=== PATIENT | male | born 1935 | race Caucasian/White ===

== ENCOUNTER 2017-01-19 15:00 | Inpatient (IN) | payer MEDICARE, BC ==
[~2017-01-19] VITALS: Ht 185.4 cm; Wt 92.2 kg
--- NOTE | ~2017-01-19 | PN ---
PATIENT'S NAME: DEVON HANDY [facility] AGE: 82 Y [address] ROOM: [address]14 [place] [address] LOCATION: [facility] [place] ADMIT DATE: 01/22/2017 Progress Notes DISCHARGE DATE: FAMILY PHYSICIAN: Marcos Dan MD ATTENDING PHYSICIAN: REMINGTON KIDD DATE OF SERVICE: 01/25/2017 DAILY SOAP NOTE An 82-year-old male. He is status post irrigation and debridement with exchange of antibiotic spacers, placement of antibiotic beads, and wound closure with negative pressure dressing attached to the wound VAC at left hip. Postoperative day 3. His cultures have come back from the draining sinus tract where the soft tissue was debrided extensively, growing out pseudomonas and VRE. I have discussed with the hospitalist and consulted infectious disease, and we relay on them for antibiotic treatment as he is very sensitive to antibiotics, have been multiple bouts of diarrhea and VRE. Having that this is growing in the sinus tract, that was debrided as well as pseudomonas with this polymicrobial infection, we performed an extensive irrigation and debridement, removing all the tissue following the tract all the way to the joint. New antibiotic spacer would be placed in the acetabulum that was without deficit, and all necrotic tissue in the tract was removed as best as possible. Several liters of pulsatile lavage were utilized and wound was closed as best as possible and minimize the free space. The patient is being watched and followed by the hospitalist with low hemoglobin. If it becomes symptomatic, may need blood transfusion. Current vital signs, 125/66 blood pressure, heart rate has been normal in the 50s and 70s, temperature afebrile, then on O2 2 L by nasal cannula. His hemoglobin is in the 7. Preoperative was 9.2. Due to this polymicrobial infection, we will relay on infectious disease to help. We will check the wound. Once the wound is completely healed, we will plan to re-aspiration and synovature. If wound at that point is well healed, and he has been off antibiotics with negative culture, we can plan reimplantation of prosthesis as part of the second stage at that time. It is unfortunate that Mr. Devon Handy has had to go through this stage I surgery for numerous times, however, given his history of periprosthetic spine infections and MRSA, if this wound does not heal and get better, he may need further irrigation and debridement. We will continue to monitor him, my PA Matt follows him often. Thank you for the Infectious Disease and the Hospitalist input. Also thanks to Dr. Mason for providing us second opinion. PATIENT'S NAME: DEVON HANDY [facility] AGE: 82 Y [address] ROOM: [place] [address] LOCATION: [facility] [place] ADMIT DATE: 01/22/2017 Progress Notes DISCHARGE DATE: FAMILY PHYSICIAN: Marcos Dan MD ATTENDING PHYSICIAN: REMINGTON KIDD REMINGTON KIDD DO PH/modl /[id number] d: 01/25/172047 t: 02/03/17 1628, PROGRESS NOTES
--- NOTE | ~2017-01-19 | HP ---
PATIENT'S NAME: DEVON HANDY [facility] AGE: 82 Y [address] ROOM: [place] [address] LOCATION: [facility] ADMIT DATE: 01/22/2017 History & Physical DISCHARGE DATE: FAMILY PHYSICIAN: Marcos Dan MD ATTENDING PHYSICIAN: REMINGTON KIDD DATE OF SERVICE: ADDENDUM: The patient was seen by Cardiology and pacemaker interrogation was performed. As per Cardiology, it is okay to proceed with surgery tomorrow from a cardiac standpoint. His pacemaker is firing appropriately. STEPHANE HIGGINS APRN FOR MD KUSH SALAZAR/olivia /[id number] D: [id number] T: [id number] HISTORY & PHYSICAL
--- NOTE | ~2017-01-19 | OR ---
PATIENT'S NAME: DEVON HANDY [facility] AGE: 82 Y [address] ROOM: [address] [place], [place] [address] LOCATION: [facility] [place] ADMIT DATE: 01/22/2017 OR/Procedure Report DISCHARGE DATE: 01/26/2017 FAMILY PHYSICIAN: Marcos Dan MD ATTENDING PHYSICIAN: DEVENDRA DREW SURGEON: Devendra Drew DO RENAL NURSE: DATE OF PROCEDURE: 01/22/2017 Corrected copy per physician 01/28 PREOPERATIVE DIAGNOSES: Sinus tract with periprosthetic wound infection; history of sepsis with MRSA, sensitive to antibiotics with multiple bouts of Clostridium difficile; history of periprosthetic spine infection; history of left hip dislocation with periacetabular fracture and 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 POSTOPERATIVE DIAGNOSIS: Sinus tract with periprosthetic wound infection; history of sepsis with MRSA, sensitive to antibiotics with multiple bouts of Clostridium difficile; history of periprosthetic spine infection; history of left hip dislocation with periacetabular fracture and revision from bipolar to total hip arthroplasty status post fall with wound dehiscence and dislocation of bipolar, confirming a superficial wound that would not heal with multiple bouts of wound care and wound VAC. Confirmed intraoperatively there is sinus tract connecting to the joint space where he had undergone life-saving treatment due to sepsis and periprosthetic wound infection by Dr. Mason while I was out of town and my partner Karl Rodgers was on-call. We thank him for the service. PROCEDURE: Irrigation and debridement left hip with exchange antibiotic spacers and antibiotic beads. INDICATIONS: Mr. Devon Handy is an 82-year-old gentleman, who underwent treatment for displaced femoral neck hip fracture by me. He had a fall and posterior wall fracture dislocating his bipolar hemiarthroplasty. With this fall, he had a wound dehiscence. He was under the care of Dr. Guerrero who was taking [facility] office call, performed reduction and wound irrigation and debridement. I took him back to the OR and confirmed he had a small posterior wall acetabular fracture. This fragment was removed and he was converted to total hip arthroplasty and confirmed stable. We did a thorough irrigation and debridement, and placed the antibiotic beads. He was doing well until approximately 4 weeks later while I was out of town, reported that he had fevers, chills, had MRSA, sepsis as well as hematogenous spread to the left hip. Dr. Mason was consulted as I was out of town over the holidays and performed life-saving irrigation and debridement and explant with antibiotic spacers. He had a difficult time healing the wound despite him being off PATIENT'S NAME: DEVON HANDY [facility] AGE: 82 Y [address] ROOM: [facility] [place] [place] [address] LOCATION: [facility] [place] ADMIT DATE: 01/22/2017 OR/Procedure Report DISCHARGE DATE: 01/26/2017 FAMILY PHYSICIAN: Marcos Dan MD ATTENDING PHYSICIAN: DEVENDRA DREW antibiotics and inflammatory markers improving someone who has rheumatoid, is on chronic steroids, was unable to heal this wound. He had a similar case with the spine surgery and had difficulty with wound problems and bacteria contamination of the wound. Due to the fact that the wound is not healing, I discussed with the patient and family members and they also seek second opinion, which I welcome from Dr. Mason. We both agree that he needs to have a thorough irrigation, debridement, and removal of all the necrotic tissue through the sinus tract and replace antibiotic beads and spacers. They understand the risks, benefits, and potential complications. They understand this could be seated into his spine hardware or on his pacemaker, which is due for an exchange due to recall. They understand the risk of perioperative cardiac event, neurovascular injury, difficulty healing the wound, being on chronic steroids with rheumatoid, sepsis that could result in . DESCRIPTION OF PROCEDURE: Having been well informed, the patient brought back to operative suite, placed in the supine position on the Whitehouse table. He was placed under general endotracheal anesthesia. We held antibiotics until cultures and tissue were sent. We sent off cultures here to the [facility] lab as well as synovasure to [place] for periprosthetic joint analysis assay including alpha-defensin and crystals. We will await cultures. Infectious Disease treat empirically with antibiotics. He is very sensitive to antibiotics and has multiple bouts of C. diff. After cultures taken, he received 2 grams of IV Ancef as well as 1 gram of IV vancomycin. The wound was debrided. The antibiotic spacer removed using 4 bags of 3 L saline, total of 12 L. New spacers were made and placed in the acetabulum and into the canal as well as antibiotic beads. During examination of the cleaned wound from the acetabulum had no further defects other than the old small posterior wall fragment that had broke off when he dislocated his grace hip arthroplasty. There was a small amount of lateral calcar bone missing. His abductors appeared weak. The capsule had been excised. I do not have to really perform any releases regarding positioning. The skin necrotic portions were removed and ellipsed out for good bleeding tissue. The fascia of the tensor was closed with a single #1 Vicryl followed by running #2 Quill, subcutaneous tissue with nylon followed by Monocryl, simple interrupted sutures of the skin. A Prevena dressing was placed and will be attached to wound VAC to 125 mm continues pressure, will be removed in a week. Continue nutrition. Minimize rheumatoid medications including steroids. He will be nonweightbearing with traction transfers with assistance, fall precautions, and resume DVT prophylaxis with SCDs, AWILDA hose, and Lovenox or Xarelto. We will have Infectious Disease see him regarding continuing empiric antibiotics and await cultures and sensitivities. Hopefully, he can get his pacemaker revise in the near future and then as soon as this wound is healed. We can re-aspirate the hip under fluoro and confirmed no infection and prepare him for reimplantation. PATIENT'S NAME: DEVON HANDY [facility] AGE: 82 Y [address] ROOM: [place] [address] LOCATION: [facility] [place] ADMIT DATE: 01/22/2017 OR/Procedure Report DISCHARGE DATE: 01/26/2017 FAMILY PHYSICIAN: Marcos Dan MD ATTENDING PHYSICIAN: DEVENDRA DREW DEVENDRA DREW, PH/modl /[id number] Corrected copy per physician 01/28 d: 01/22/171738 t: 02/23/171732, OPERATIVE SUMMARY
--- NOTE | ~2017-01-19 | HP ---
PATIENT'S NAME: DEVON HANDY [facility] AGE: 82 Y [address] ROOM: [place] [address] LOCATION: ADMIT DATE: 01/22/2017 History & Physical DISCHARGE DATE: FAMILY PHYSICIAN: Physician, Unknown ATTENDING PHYSICIAN: Jimenez Jean DATE OF SERVICE: ADDENDUM: This is an addendum to the H and P that I did earlier today. The patient's EKG was over read by Cardiology. There were concerns with the patient's pacemaker and recommended further evaluation. I discussed with Dr. Torres. We will obtain a stat cardiology consult and pacemaker interrogation for further evaluation. At this time, the patient is not cleared for orthopedic surgery pending further cardiology evaluation and cardiology clearance. I discussed this with the patient and his . I did call and leave a message with Dr. Drew as well as Jimenez Jean PA-C to call me back regarding the patient. The patient is not cleared for I and D of his hip pending further cardiac clearance. Update: Cardiology saw and evaluated the patient and cleared the patient for surgery without requiring additional workups and agreed with Dr. Torres's initial assessment for preop medical clearance for surgery. STEPHANE HIGGINS APRN FOR MD KUSH SALAZAR/olivia /[id number] D: 256 T: 126 HISTORY & PHYSICAL
--- NOTE | ~2017-01-19 | DS ---
PATIENT'S NAME: DEVON HANDY [facility] AGE: 82 Y [address] ROOM: [address] [place] [address] LOCATION: [facility] [place] ADMIT DATE: 01/22/2017 Discharge Summary DISCHARGE DATE: 01/26/2017 FAMILY PHYSICIAN: Marcos Dan MD ATTENDING PHYSICIAN: Devendra Drew FINAL DIAGNOSES: 1. Left hip infection with Pseudomonas aeruginosa, status post irrigation and debridement, wound closure, and antibiotic spacers on January 22. 2. Paroxysmal atrial fibrillation. 3. Long-term anticoagulation. 4. Chronic diastolic and systolic congestive heart failure. 5. Recurrent C. diff colitis. 6. Chronic right internal jugular thrombosis. 7. Rheumatoid arthritis on chronic steroid use with chronic steroid usage. 8. Essential hypertension. 9. Long-term anticoagulation with Xarelto. 10. Acute blood loss anemia on anemia of chronic disease. 11. Stage 3 chronic kidney disease. HISTORY OF PRESENT ILLNESS: The patient was admitted from the Transitional Care Unit. He had been diagnosed with a hip infection in late October and had been on IV antibiotics through January 07. The wound had started to drain more and so the decision was made to do an I and D and then place a wound VAC. LABORATORY DATA: On the day after admission, sodium 145, potassium 4.8, chloride 110, CO2 28, BUN 28, and creatinine 1. These values at discharge sodium 137, potassium 4.6, BUN 18, and creatinine 1.4. Second hospital day, white blood cell count 9.6, hemoglobin 8.7, hematocrit 30.4, and platelet count 207. His hemoglobin did steadily drop to 7.4, 7.2, and it was 7.8, on discharge day. Platelet count was 207 on admission, most prior to discharge was 180. Culture data of left hip wound grew out Pseudomonas aeruginosa and Enterococcus faecium. HOSPITAL COURSE: The patient was admitted after undergoing a left hip I and D and wound closure with application of a wound VAC. Please see Dr. Drew's op note for full details. The patient was admitted on and did undergo routine postop care. The hospitalists were asked to follow along. Initially, his pain was fairly well-controlled. We did use Teasdale for pain control. He was monitored on telemetry. On the , his wound cultures came back positive for Pseudomonas aeruginosa and Enterococcus. At that time, ID was consulted by phone and the decision was made to place him on Zyvox and Zosyn. The patient did initiate the antibiotics. It was felt that he could return to TCU on the to complete the antibiotics and to be seen by Infectious PATIENT'S NAME: DEVON HANDY [facility] AGE: 82 Y [address] ROOM: [place] [address] LOCATION: [facility] [place] ADMIT DATE: 01/22/2017 Discharge Summary DISCHARGE DATE: 01/26/2017 FAMILY PHYSICIAN: Marcos Dan MD ATTENDING PHYSICIAN: Devendra Drew when they were here this week. DISCHARGE INSTRUCTIONS: ID to see him on January 30, he is to have a high- protein diet, weightbearing as tolerated, PT and OT has worked weekly, CBC, Chem panel, sed rate, and C-reactive protein every Thursday, Colbert catheters in place for urinary retention with a goal to remove it when he is more active. DISCHARGE MEDICATIONS: 1. Vancomycin 125 mg twice daily for C. diff prevention. 2. Zyvox 600 mg twice daily. 3. IV Zosyn 3.375 g IV q.8 h. 4. Bumex 1 mg daily. 5. Citracal with D one twice daily. 6. Coreg 3.125 mg twice daily. 7. Vitamin D 2000 units daily. 8. Feosol 325 mg daily. 9. Protonix 40 mg daily. 10. Metamucil 1 packet daily. 11. Xarelto 20 mg daily. 12. Florastor 250 mg twice daily. 13. Flomax 0.4 mg at bedtime. 14. Tylenol 650 mg every 6 hours as needed. 15. Teasdale 5/325 1-2 every 4 hours as needed for pain. 16. Dulcolax 10 mg per rectum as needed for constipation. 17. Chloraseptic spray 1 spray every 2 hours as needed for sore throat. 18. Benadryl 25 to 50 every 6 hours as needed for itching. 19. Lidocaine for IV start. 20. Milk of mag 30 mL daily as needed for constipation. 21. MiraLAX 17 g daily as needed. 22. Fleet's enema as needed. 23. Lexapro 20 mg daily. MD SUSANA WILHELM/pastoral /[id number] CC: MD Devendra Josue DO d: 01/27/17 0358 t: 01/28/17 1043, DISCHARGE SUMMARY
--- NOTE | ~2017-01-19 | HP ---
PATIENT'S NAME: DEVON HANDY [facility] AGE: 82 Y [address] ROOM: [place] [address] LOCATION: ADMIT DATE: 01/22/2017 History & Physical DISCHARGE DATE: FAMILY PHYSICIAN: Physician, Unknown ATTENDING PHYSICIAN: Jimenez Jean DATE OF SERVICE: CHIEF COMPLAINT: Infected left hip. HISTORY OF PRESENT ILLNESS: This is a pleasant, 82-year-old male with a history of left hip infection MRSA, status post I and D, removal of prosthesis, and implantation of impregnated spacers. He was placed on vancomycin postop. Infectious Disease has been following closely. His IV vancomycin was discontinued on 01/07/2017. Dr. Drew plans to take the patient for further left hip I and D with closure and wound VAC application on 01/22/2017. The patient has been hospitalized at [facility]CU for restorative care and IV antibiotics since 12/05/2016. He has progressed well with therapies. He does have some left hip pain as well as chronic low back pain. He has been working with PT, OT, and ST. He denies any chest pain, shortness of breath, cough, wheezing, nausea, or vomiting. He has a history of recurrent C difficile colitis for which he was placed on vancomycin and also a vancomycin p.o. taper. His stools have been formed. He has had no diarrhea. Blood cultures drawn on 01/13/2017 have showed no growth to date. He has had no fevers, chills, or night sweats. Wound Care has been following him for his wound VAC that is in place. He has been able to tolerate a regular diet. He is scheduled to have his pacemaker/ICD exchange with Dr. Garcia on 01/30/2017 at [facility] as it was recalled by the company. His paroxysmal atrial fibrillation has been stable. He is currently, on EKG, in sinus rhythm. He is on Xarelto which is currently on hold for the upcoming surgery. Overall, he states he is feeling well. His appetite is good, tolerating a regular diet. He does continue to have a Colbert secondary to urinary retention. He is on Flomax. The plan, as per Urology, is to try a voiding trial when the patient is more active. He has not required any oxygen. Heart rate has been stable. Denies dizziness or light headedness. PAST MEDICAL HISTORY: 1. Chronic systolic and diastolic CHF. 2. History of left lower extremity DVT 7 years ago. 3. Essential hypertension. 4. GERD. 5. History of sepsis secondary to urinary tract infection. 6. Recurrent C difficile colitis. 7. Rheumatoid arthritis. PATIENT'S NAME: DEVON HANDY [facility] AGE: 82 Y [address] ROOM: [place] [address] LOCATION: ADMIT DATE: 01/22/2017 History & Physical DISCHARGE DATE: FAMILY PHYSICIAN: Physician, Unknown ATTENDING PHYSICIAN: Jimenez Jean 8. Long-term anticoagulation use. 9. Long-term steroid use. 10. History of AV node ablation with pacemaker placement/ICD. This pacemaker/ICD has been recalled. The patient is scheduled to undergo replacement of that in the future. 11. Paroxysmal atrial fibrillation. 12. Right IJ DVT, chronic. 13. Vitamin D deficiency. 14. Acute blood loss anemia. 15. History of chronic respiratory failure. Had been on 3 L of nocturnal oxygen; however, has not needed that since being hospitalized on TCU. ALLERGIES: NORVASC AND REMERON. FAMILY HISTORY: Mother and brother with CT. Father with lung cancer and ulcers. SOCIAL HISTORY: The patient is . He is currently residing at [facility] since 12/05/2016. No history of smoking or alcohol use. REVIEW OF SYSTEMS: A 10-point review of systems was performed and was negative except those which are noted in the HPI. CURRENT MEDICATIONS: As discharged from TCU are: 1. Bumex 1 mg p.o. daily. 2. Calcium with Vitamin D one tablet p.o. twice a day. 3. Coreg 3.125 mg p.o. twice a day. 4. Vitamin D 2000 units p.o. daily. 5. Lexapro 20 mg p.o. daily. 6. Feosol 325 mg p.o. daily. 7. Magnesium oxide 400 mg p.o. daily. 8. Protonix 40 mg p.o. daily. 9. Prednisone 5 mg p.o. daily. 10. Metamucil one packet p.o. daily. 11. Florastor 250 mg p.o. twice a day. 12. Flomax 0.4 mg p.o. q.h.s. 13. Tylenol 650 mg p.o. every 4 hours as needed for pain. 14. [place] 5/325 one or two tablets p.o. every 4 hours as needed for pain. 15. Dulcolax suppository 10 mg as needed for constipation. 16. Milk of magnesia 30 mL p.o. daily as needed for constipation. 17. MiraLAX 17 g p.o. daily p.r.n. constipation. PATIENT'S NAME: DEVON HANDY [facility] AGE: 82 Y [address] ROOM: [place] [address] LOCATION: ADMIT DATE: 01/22/2017 History & Physical DISCHARGE DATE: FAMILY PHYSICIAN: Physician, Unknown ATTENDING PHYSICIAN: Jimenez Jean 18. Xarelto 20 mg p.o. daily, this is currently on hold secondary to pending surgery. PHYSICAL EXAMINATION: GENERAL: This is an 82-year-old male in no acute distress. VITAL SIGNS. Temperature 97.6, heart rate 90, respirations 16, blood pressure 97/52, and 92% on room air. 92.2 kg. HEENT: Head is atraumatic. Pupils equal, round, and reactive to light. Oral mucosa is moist. No posterior oropharynx exudate or erythema. NECK: Supple. No lymphadenopathy. LUNGS: Clear throughout to auscultation bilaterally. No rales, crackles, or wheezing. No dyspnea. CARDIOVASCULAR: Distant heart sounds. Regular rhythm and rate. No murmur. There is evidence of a pacemaker to the left chest. ABDOMEN: Nondistended and nontender. Bowel sounds are active x4 quadrants. No organomegaly. MUSCULOSKELETAL: He does have deformities of both hands and feet secondary to his rheumatoid arthritis. Left hip has a surgical dressing with a wound VAC. EXTREMITIES: Pulses 2+ bilateral upper extremities, 1+ bilateral lower extremities. Extremities are warm. Cap refill less than 3. Left lower extremity is currently in traction. Trace edema to bilateral lower extremities. SKIN: Warm and dry without rashes. NEUROLOGIC: The patient is awake, alert, and oriented x3. Cranial nerves 2 through 12 are grossly intact. DIAGNOSTIC STUDIES: EKG done on 01/21/2017 shows sinus rhythm with borderline first-degree AV block with demand pacing. Chest x-ray: Pending radiologist's reading. There does not appear to be any focal infiltrate. WBC 6.7, hemoglobin 9.2, hematocrit 31.4, and platelets 198. ESR 34. Prothrombin time 12.9 and INR 1.2. Sodium 142, potassium 4.2, chloride 107, CO2 of 27, anion gap 12.2, glucose 118, calcium 8.0, BUN 30, creatinine 1.1, and GFR greater than 60. CRP 1.63. Blood cultures collected on 01/13/2017 times two have revealed no growth to date after 5 days. IMPRESSION AND PLAN: 1. Left septic hip, methicillin-resistant Staphylococcus aureus: The patient will be readmitted for Orthopedics to perform irrigation and debridement, wound closure, and wound VAC placement. He is currently off antibiotics, had previously been treated with vancomycin. 2. Chronic systolic and diastolic congestive heart failure: The patient is PATIENT'S NAME: DEVON HANDY [facility] AGE: 82 Y [address] ROOM: [place] [address] LOCATION: ADMIT DATE: 01/22/2017 History & Physical DISCHARGE DATE: FAMILY PHYSICIAN: Physician, Unknown ATTENDING PHYSICIAN: Jimenez Jean currently on Bumex 1 mg. we will continue that for now. He appears to be compensated. Continue to monitor weights and inputs and outputs. 3. Urinary retention: The patient currently has a Colbert catheter. He had been seen by Urology. The Colbert catheter is to remain in place until he becomes more active. 4. Essential hypertension: Blood pressures have been stable. Systolically, he ranges from 97 to 150s. Continue on the patient's low-dose Coreg for now. 5. Paroxysmal atrial fibrillation: His rates are stable. He does have a pacemaker/ICD. His Xarelto is on hold currently for pending surgery. Continue Coreg for now. Recommend monitoring on telemetry postoperatively. 6. Vitamin D deficiency: Continue p.o. replacement with calcium and vitamin D. 7. Rheumatoid arthritis: The patient is on long-term steroid use with prednisone. Continue that for now and monitor. 8. Acute blood loss anemia: His hemoglobin is stable currently. Recommend to monitor serial hemoglobin and hematocrit postoperatively. Continue on Feosol. 9. Depression: Stable. We will continue home Lexapro. 10. Hypomagnesium: Continue p.o. magnesium replacement. Recommend followup labs postoperatively. 11. Gastroesophageal reflux disease: Currently, stable and asymptomatic. Continue Protonix. 12. Constipation: Continue Metamucil and p.r.n. Dulcolax and MiraLAX as needed. 13. History of recurrent Clostridium difficile colitis: We will continue the patient's floor Florastor for now. His stools have been formed. Continue monitoring. 14. History of chronic respiratory failure: The patient, prior to his admit, had required 3 L of oxygen at night; however, his saturations have remained greater than 90 throughout his stay and has not required any oxygen. We will go ahead and continue to monitor and apply oxygen if his saturations are less than 90%. The patient is an intermediate risk for this orthopedic surgery. The patient's care is being coordinated in consultation with Dr. Torres. STEPHANE HIGGINS APRN FOR MD KUSH SALAZAR/olivia PATIENT'S NAME: DEVON HANDY [facility] AGE: 82 Y [address] ROOM: [place] [address] LOCATION: ADMIT DATE: 01/22/2017 History & Physical DISCHARGE DATE: FAMILY PHYSICIAN: Physician, Unknown ATTENDING PHYSICIAN: Jimenez Jean /[id number] D: [id number] T: [id number] HISTORY & PHYSICAL
[~2017-01-19 15:00] MED LIST: ALBUTEROL2.5 MG/0.5 INH; ARAVA20 MG PO; CALCIUM 500 +1 EAC1 PO; COLACE100 MG PO; COREG 3.1253.125 MG PO; DELTASONE5 MG PO; DULCOLAX10 MG R; ENSURE LIQUID237 ML PO; FEOSOL325 MG PO; FISH OIL 1,0001 EAC3 PO; LASIX20 MG PO; LEXAPRO20 MG PO; MAALOX LIQ UNIT30 ML PO; MILK OF MA400 MG/5 M PO; MIRALAX PO527 GM/BOT; MIRALAX17 GM PO; OMEPRAZOLE40 MG PO; PAIN RELIEVER325 MG PO; PROVENTIL OR V6.7 GM; ROCEPHIN1 G1 IM; ULTRAM50 MG PO; VITAMIN B-121000 MCG PO; VITAMIN D1000 UNIT PO; XARELTO20 MG PO
--- NOTE | 2017-01-22 16:52 | NUR ---
Significant Event: Received from PACU at 1425. 2nd hourly at 1910. Morphine 2mg IVP at 1510. [place] one tab at 1645. Wound vac to lt hip. CSM WNL. Telemetry. PICC to rt upper arm. Taking water. Follow up:
[2017-01-23 03:42] LABS: ANION GAP 11.8 (10.0-19.0); BLOOD UREA NITROGEN 28 mg/dL (6-24); CALCIUM 7.6 mg/dL (8.5-10.5); CHLORIDE 110 mMol/L (96-110); CO2 28 mMol/L (22-32); ESTIMATED GFR (MDRD EQUATION) > 60; POTASSIUM 4.8 mMol/L (3.7-5.1); SODIUM 145 mMol/L (135-145)
[2017-01-23 04:33] LABS: BASOPHIL # 0.1 K/uL (0.0-0.2); BASOPHIL % 0.5 %; EOSINOPHIL # 0.4 K/uL (0.0-0.5); EOSINOPHIL % 4.6 %; HEMATOCRIT 30.4 % (33.0-50.0); HEMOGLOBIN 8.7 g/dL (11.0-16.0); IMMATURE GRANULOCYTE % 0.4 %; LYMPHOCYTE # 1.7 K/uL (0.8-4.0); LYMPHOCYTE % 18.2 %; MCH 25.7 pg (27.0-34.0); MCHC 28.6 gm/dL (32.0-36.5); MCV 89.7 fl (83.0-98.0); MONOCYTE # 1.1 K/uL (0.0-1.0); MPV 10.9 fl (9.4-12.4); NEUTROPHIL # (ANC) 6.3 K/uL (1.4-9.0); NEUTROPHIL % 65.3 %; NRBC % 0 /100WBC (0-0.00); PLATELET COUNT 207 K/uL (150-450); RBC 3.39 M/uL (3.50-5.50); RDW-CV 16.7 % (11.9-14.6); WBC 9.6 K/uL (4.0-11.0)
--- NOTE | 2017-01-23 04:56 | NUR ---
MRSA ISOLATION POD#1 I&D OF LEFT HIP WITH ANTIBIOTIC SEEDING, WOUND VAC TO LEFT THIGH AND HNO OUTPUT THIS SHIFT, BUCKS TRACTION TO LLE 1LBS, GOOD CSMS TO BLE, BLOOD PRESSURES TO RLE DUE TO HX OF DVTS TO LUE AND SL BARD SOLO PICC TO THE RIGHT DATED 01/17/17 WITH GOOD BLOOD RETURN AND EASY FLUSH RUNNING D5 1/2NS W/K+ 20MEQ @125ML/HR AND MAY SALINE LOCK WITH GOOD PO. PATIENT SLEPT MOST OF THE SHIFT AND RECEIVED MORPHINE IVP X ONE WITH GOOD PAIN RELIEF, VERY POOR PO INTAKE AND ONLY 400ML URINE OUTPUT THRU CARLS[facility] W/ORDERS TO DC THIS AFTERNOON, NO BMS THIS SHIFT. VS WNL, ON 2L O2 PER NC, BRADYCARDIC MOST OF THE SHIFT IN THE 50'S, ON TELE THAT SHOWS PACED AND AICD TO LEFT SUBCLAVIN. LLE WITH 2-3+ PITTING EDEMA FROM ANKLES UP TO HIP.
--- NOTE | 2017-01-23 12:00 | NUR ---
RECEIVED REFERRAL THAT PATIENT WILL BE READY FOR TRANSFERE TO TCU TOMORROW. I SPOKE TO [facility] ON TCU AND SHE TELLS ME THAT THEY HAVE SAVED A BED FOR DEVON SHE WILL GET BACK TO ME TO WHEN THEY CAN ACCEPT PATIENT BACK.
--- NOTE | 2017-01-23 17:38 | NUR ---
Significant Event: PATIENT ALERT AND ORIENTED X3. WOUND VAC TO L) HIP, DRAINING BLOODY DRAINAGE WITH 200ML OUT. CSM ASSESSMENTS WNL. FOOT PUMP TO R) FOOT AND BILATERAL KNEE HIGH AWILDA HOSE ON. BUCKS TRACTION 10LBS TO L) LEG. UP TO CHAIR AND RETURNED TO BED WITH LIFT. ON TELEMETRY. PAIN WELL CONTROLLED WITH NORCO 1 TAB GIVEN LAST AT 1516 AND IV MORPHINE AT 0920. CARLSON PATENT, WITH 775ML OUT. EDEMA TO L) LEG. HEELS OFF BED WITH PILLOWS. ICE BAG TO L) HIP. TAKING FLUIDS WELL, GOOD APPETITE. PICC R) UPPER ARM, PATENT. Follow up: TO LEAVE [facility] IN, TCU AT 1000 TOMORROW.
--- NOTE | 2017-01-24 04:41 | NUR ---
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
[2017-01-24 06:17] LABS: BASOPHIL % 0.5 %; EOSINOPHIL # 0.5 K/uL (0.0-0.5); EOSINOPHIL % 8.4 %; HEMATOCRIT 25.4 % (33.0-50.0); IMMATURE GRANULOCYTE % 0.5 %; LYMPHOCYTE # 1.4 K/uL (0.8-4.0); LYMPHOCYTE % 23.4 %; MCV 89.1 fl (83.0-98.0); MONOCYTE # 0.9 K/uL (0.0-1.0); MONOCYTE % 13.8 %; MPV 10.6 fl (9.4-12.4); NEUTROPHIL # (ANC) 3.3 K/uL (1.4-9.0); NEUTROPHIL % 53.4 %; NRBC % 0 /100WBC (0-0.00); RBC 2.85 M/uL (3.50-5.50); RDW-CV 16.8 % (11.9-14.6); WBC 6.2 K/uL (4.0-11.0)
[2017-01-24 06:20] LABS: HEMOGLOBIN 7.4 g/dL (11.0-16.0); MCHC 29.1 gm/dL (32.0-36.5); PLATELET COUNT 163 K/uL (150-450)
[2017-01-24 06:21] LABS: ANION GAP 9.5 (10.0-19.0); BLOOD UREA NITROGEN 25 mg/dL (6-24); CHLORIDE 110 mMol/L (96-110); CO2 26 mMol/L (22-32); ESTIMATED GFR (MDRD EQUATION) > 60; POTASSIUM 4.5 mMol/L (3.7-5.1); SODIUM 141 mMol/L (135-145)
[2017-01-24 06:23] LABS: CALCIUM 7.4 mg/dL (8.5-10.5)
--- NOTE | 2017-01-24 19:15 | NUR ---
Significant Event: charge nurse received call from lab, patient +for VRE, inital dose of iv zosyn and zyvox given. picc to r) upper arm patent. wound vac to l) hip intact. stevens patent with 650ml out. foot pump to r) foot. l) leg in bucks traction 10lbs. ice bag to l) hip. repositioned frequently with 2 assist. taking fluids well, good appetite. no drainage noted from wound vac. norco 2 tabs given at 1753. pleasant and cooperative with cares. bilateral knee high teds on. remains in isolation. Follow up:
--- NOTE | 2017-01-25 04:22 | NUR ---
Significant Event: Pt alert and oriented. Forgetful. Up with lift. [place] traction at 10lbs. PICC. Dsg changed this am. [place] q6hrs. NS with 20K at 125ml. Good output. Wound vac 50cc out, Labs this am. Incision c/d/i. Cms intact. Colbert patent. Follow up:
[2017-01-25 05:22] LABS: ANION GAP 14.3 (10.0-19.0); BLOOD UREA NITROGEN 19 mg/dL (6-24); CALCIUM 7.5 mg/dL (8.5-10.5); CHLORIDE 106 mMol/L (96-110); CO2 23 mMol/L (22-32); ESTIMATED GFR (MDRD EQUATION) > 60; POTASSIUM 4.3 mMol/L (3.7-5.1); SODIUM 139 mMol/L (135-145)
[2017-01-25 05:24] LABS: BASOPHIL % 0.5 %; EOSINOPHIL # 0.5 K/uL (0.0-0.5); EOSINOPHIL % 7.4 %; HEMOGLOBIN 7.2 g/dL (11.0-16.0); IMMATURE GRANULOCYTE % 0.5 %; LYMPHOCYTE # 1.6 K/uL (0.8-4.0); LYMPHOCYTE % 24.6 %; MCH 25.5 pg (27.0-34.0); MCHC 28.8 gm/dL (32.0-36.5); MCV 88.7 fl (83.0-98.0); MONOCYTE # 0.7 K/uL (0.0-1.0); MPV 10.6 fl (9.4-12.4); NEUTROPHIL # (ANC) 3.6 K/uL (1.4-9.0); NRBC % 0 /100WBC (0-0.00); PLATELET COUNT 155 K/uL (150-450); RBC 2.82 M/uL (3.50-5.50); RDW-CV 16.5 % (11.9-14.6); WBC 6.3 K/uL (4.0-11.0)
--- NOTE | 2017-01-25 17:11 | NUR ---
Significant Event: Patient has rested well this shift. 1 [place] given in early afternoon. Turned q2h. Remains in Garcia's traction. VSS. Gave him a KPad for his shoulders. Very pleasant and appreciative. Follow up:
[2017-01-26 05:22] LABS: BASOPHIL % 0.4 %; EOSINOPHIL # 0.6 K/uL (0.0-0.5); HEMATOCRIT 26.5 % (33.0-50.0); HEMOGLOBIN 7.8 g/dL (11.0-16.0); IMMATURE GRANULOCYTE % 0.4 %; LYMPHOCYTE # 1.7 K/uL (0.8-4.0); LYMPHOCYTE % 23.5 %; MCH 25.7 pg (27.0-34.0); MCHC 29.4 gm/dL (32.0-36.5); MCV 87.2 fl (83.0-98.0); MONOCYTE # 0.8 K/uL (0.0-1.0); MONOCYTE % 11.3 %; MPV 10.3 fl (9.4-12.4); NEUTROPHIL # (ANC) 3.9 K/uL (1.4-9.0); NEUTROPHIL % 55.4 %; NRBC % 0 /100WBC (0-0.00); PLATELET COUNT 180 K/uL (150-450); RBC 3.04 M/uL (3.50-5.50); RDW-CV 16.3 % (11.9-14.6)
[2017-01-26 05:34] LABS: ANION GAP 11.6 (10.0-19.0); CALCIUM 7.2 mg/dL (8.5-10.5); CREATININE 1.4 mg/dL (0.6-1.3); POTASSIUM 4.6 mMol/L (3.7-5.1)
--- NOTE | 2017-01-26 07:05 | NUR ---
Significant Event: Pt alert and oriented. turn 2qh. [place] traction when in bed. [place] for pain. aqua k pad for shoulders. Heels off the bed. PICC in R subclavian. Good blood return. Full lift. TCU? Follow up:
--- NOTE | 2017-01-26 10:10 | NUR ---
RECEIVED CALL FROM [facility] ON TCU SHE REPROTS THAT THEY CAN ACCEPT PATIENT TO TCU TODAY AT 1300. I NOTIFIED DANIELLE THE CHARGE NURSE ON MSU SHE WILL CONTACT DR. CORDELL STAFFORD THIS.
--- NOTE | 2017-01-26 10:30 | NUR ---
DR. LANDA HERE AND COMPLETED THE TRANSFERE ORDERS FOR PATIENT TO GO TO TCU. PATIENT HAS BEEN UPDATED THAT HE WILL GO TO TCU AND IN AGREEMENT TO THE DISCHARGE PLAN. HIS SPOUSE AT THE BEDSIDE WHEN HE WAS UPDATED.
--- NOTE | 2017-01-26 15:28 | NUR ---
transferred to tcu, report given to Olga Redmond. belongings sent with patient. bucks traction to LLE 10 lbs, stevens patent with sediment. norco for pain at 1300. kpad to shoulder for discomfort. nwb LLE. vss. wound vac intact anterior left hip. 3 large bms' today. in [facility].
[2017-03-16] MEDS ORDERED: BUMEX1 MG (13:49)
[2017-03-16] MEDS ORDERED: FLOMAX0.4 MG (13:50)
[2017-03-16] MEDS ORDERED: FLORASTOR250 MG (13:51)
[2017-03-16] MEDS ORDERED: LEXAPRO20 MG (13:51)
[2017-03-16] MEDS ORDERED: METAMUCIL PACKE1 PKT (13:53)
[2017-03-16] MEDS ORDERED: PROTONIX40 MG (13:54)
[2017-03-16] MEDS ORDERED: XARELTO20 MG (13:55)
[2017-03-16] MEDS ORDERED: ENSURE LIQUID237 ML (13:57)
[2017-03-16] MEDS ORDERED: ENEMA BOTTLE1 EACH (13:58)
[2017-03-16] MEDS ORDERED: BENADRYL25 MG (13:58)
[2017-03-16] MEDS ORDERED: NYSTATIN1 EAC1 (13:59)
[2017-03-16] MEDS ORDERED: NORCO 10-325 T1 EACH (13:59)
[2017-04-10] MEDS ORDERED: BOOST BREEZE237 ML PO (09:39)
[2017-04-10] MEDS ORDERED: CIPRO500 MG PO (09:40)
[2017-04-10] MEDS ORDERED: CALCIUM 600 +1 EA13 PO (09:42)
[2017-04-10] MEDS ORDERED: COLACE100 MG PO (09:42)
[2017-04-10] MEDS ORDERED: PROLIA60 MG/ML SUB-Q (09:44)
[2017-04-10] MEDS ORDERED: OXYGEN M-15 INH ×2 (09:45→11:11)
[2017-04-10] MEDS ORDERED: FLOMAX0.4 MG PO (09:46)
[2017-04-10] MEDS ORDERED: MAALOX LIQ UNIT30 ML PO (09:46)
[2017-04-10] MEDS ORDERED: METAMUCIL PACK3.4 GM PO (09:47)
[2017-04-10] MEDS ORDERED: DELTASONE5 MG PO (09:48)
[2017-04-10] MEDS ORDERED: TYLENOL325 MG PO (09:48)
[2017-04-10] MEDS ORDERED: IRON65 PO (09:49)
[2017-04-10] MEDS ORDERED: BENADRYL25 MG PO (09:50)
[2017-04-10] MEDS ORDERED: FLEET ENEMA133 ML R (09:51)
[2017-04-10] MEDS ORDERED: FLORASTOR250 MG PO (09:51)
[2017-04-10] MEDS ORDERED: TRIAMCINOLONE 080 GM TOP (09:52)
[2017-04-10] MEDS ORDERED: BUMEX1 MG PO (10:45)
[2017-04-10] MEDS ORDERED: PROTONIX40 MG PO (10:47)
[2017-04-10] MEDS ORDERED: VANCOCIN HCL125 MG PO (10:49)
[2017-04-10] MEDS ORDERED: NYSTATIN1 EAC2 TOP (11:11)
== END 2017-01-26 13:25 | DRG 464 ==
LOC: G3N 01-22 08:20 → UNDOADMIN 01-22 08:39 → G3N 01-22 08:39 → GMSU 01-24 15:13
PROVIDERS: Internal Medicine; Nurse Practitioner Family; ADMIT Orthopaedic Surgery
PROC: 3E0U029 Introduction of Other Anti-infective into Joints, Open Approach (ICD-10-PCS; principal; 2017-01-22)
PROC: 0SHB08Z Insertion of Spacer into Left Hip Joint, Open Approach (ICD-10-PCS; principal; 2017-01-22)
PROC: 0HBJXZZ Excision of Left Upper Leg Skin, External Approach (ICD-10-PCS; principal; 2017-01-22)
DX: T84.52XA Infection and inflammatory reaction due to internal left hip prosthesis, initial encounter (principal); T81.4XXA Infection following a procedure, initial encounter; J96.10 Chronic respiratory failure, unspecified whether with hypoxia or hypercapnia; I50.42 Chronic combined systolic (congestive) and diastolic (congestive) heart failure; D62 Acute posthemorrhagic anemia; I82.721 Chronic embolism and thrombosis of deep veins of right upper extremity; I48.0 Paroxysmal atrial fibrillation; Z79.01 Long term (current) use of anticoagulants; M06.9 Rheumatoid arthritis, unspecified; Z79.52 Long term (current) use of systemic steroids; I12.9 Hypertensive chronic kidney disease with stage 1 through stage 4 chronic kidney disease, or unspecified chronic kidney disease; N18.3 Chronic kidney disease, stage 3 (moderate); D63.1 Anemia in chronic kidney disease; R33.9 Retention of urine, unspecified; Z86.718 Personal history of other venous thrombosis and embolism; K21.9 Gastro-esophageal reflux disease without esophagitis; Z95.810 Presence of automatic (implantable) cardiac defibrillator; E55.9 Vitamin D deficiency, unspecified; F32.9 Major depressive disorder, single episode, unspecified; K59.00 Constipation, unspecified; D63.8 Anemia in other chronic diseases classified elsewhere; Z86.14 Personal history of Methicillin resistant Staphylococcus aureus infection; L08.9 Local infection of the skin and subcutaneous tissue, unspecified; B96.5 Pseudomonas (aeruginosa) (mallei) (pseudomallei) as the cause of diseases classified elsewhere; B95.2 Enterococcus as the cause of diseases classified elsewhere
CPT/HCPCS: C1713; J0690; J1580; J2020; J2270; J2405; J2543; J3010; J3370; J3480; J7030; J7040; J7050

== ENCOUNTER 2017-01-26 13:49 | Inpatient (IN) | payer MEDICARE, BC ==
[~2017-01-26] VITALS: Ht 185.4 cm; Wt 93.7 kg
--- NOTE | ~2017-01-26 | DS ---
PATIENT'S NAME: DEVON HANDY [facility] AGE: 82 Y [address] ROOM: [address] [place] [address] LOCATION: [facility] ADMIT DATE: 01/26/2017 Discharge Summary DISCHARGE DATE: 03/10/2017 FAMILY PHYSICIAN: Marcos Dan MD ATTENDING PHYSICIAN: Devendra Drew FINAL DIAGNOSIS: Left hip periprosthetic fracture status post hardware removal with irrigation and debridement of synovial tract with placement of antibiotic spacers and antibiotic beads. SURGEON: Devendra Drew D.O. CONSULTATIONS: Hospitalists for medical management. He also had some concerns with a pacemaker that had been retagged Cardiology obtained due to his [employer] pacemaker . Date of discharge 03/10/2017. With wound care and medical management his wound had completely healed. The plan was to send him back to rehab facility, where he will be toe-touch weightbearing. His wound has completely healed. He has been on antibiotics, which were stopped on 03/09/2017 . He will have an aspirate in approximately 2 to 3 weeks. If the aspiration is negative, we would plan reimplantation early March as part of stage 2 of this hip arthroplasty. Please refer to the hospice note for other medical interventions during the stay. DEVENDRA DREW DO PH/modl /[id number] d: 03/19/[id number] t: 03/26/17 1122, DISCHARGE SUMMARY
--- NOTE | ~2017-01-26 | PN ---
PATIENT'S NAME: DEVON HANDY [facility] AGE: 82 Y [address] ROOM: [id number] [place] [address] LOCATION: [facility] ADMIT DATE: 01/26/2017 Progress Notes DISCHARGE DATE: FAMILY PHYSICIAN: Marcos Dan MD ATTENDING PHYSICIAN: REMINGTON KIDD DATE OF SERVICE: 02/04/2017 ASSESSMENT: 1. Status post left hip irrigation and debridement with closure, removal of antibiotic spacers, reimplantation of antibiotic spacers and antibiotic beads. 2. Left shoulder glenohumeral joint osteoarthritis severe. PLAN: 1. Prevena dressing was removed today and area of surgical incision was evaluated. Surgical incision appears to be clean, dry, and intact with the exception of mid aspect of incision area approximately 5 mm in diameter and 1 mm deep. There is good granular tissue being laid down. No signs of infection at this point. I was unable to probe with a sterile Q-tip down deep into the canal which is a good indication of the healing process. I did consult Wound Care and the Wound Care nurse did come up and evaluate the incision as well. We agreed the plan will be to put Adaptic dressing on there with a drain. This will remain on for 5 days and Wound Care will come change it in 5 days on 02/09/2017. If I am not available to come see the area, they will call me with their opinion of where to proceed with re-applying the Adaptic versus Mepilex dressing. The patient does have a significant history of infection which has not healed well. Therefore, Adaptic dressing is the best option at this point versus Mepilex dressing. The patient is neurovascularly intact and is doing well otherwise. 2. We will hold off on cortisone injection for shoulder given the fact that the patient has infection in his hip. We do not want the infection become systemic and spread to his shoulder. This was explained to the patient with all questions answered appropriately. Plan will be to do shoulder injection once the infection in the hip has been cleared. CARY VALLES PA-C FOR REMINGTON KIDD, DO BRITO/olivia PATIENT'S NAME: DEVON HANDY [facility] AGE: 82 Y [address] ROOM: [address] [address] LOCATION: [facility] ADMIT DATE: 01/26/2017 Progress Notes DISCHARGE DATE: FAMILY PHYSICIAN: Marcos Dan MD ATTENDING PHYSICIAN: REMINGTON KIDD /[id number] d: 02/04/172223 t: 03/17/17 0749, PROGRESS NOTES
--- NOTE | ~2017-01-26 | DS ---
PATIENT'S NAME: DEVON HANDY [facility] AGE: 82 Y [address] ROOM: [address] [place] [address] LOCATION: [facility] [place] ADMIT DATE: 01/22/2017 Discharge Summary DISCHARGE DATE: 01/26/2017 FAMILY PHYSICIAN: Marcos Dan MD ATTENDING PHYSICIAN: Devendra Drew FINAL DIAGNOSES: 1. Left hip infection with Pseudomonas aeruginosa, status post irrigation and debridement, wound closure, and antibiotic spacers on January 22. 2. Paroxysmal atrial fibrillation. 3. Long-term anticoagulation. 4. Chronic diastolic and systolic congestive heart failure. 5. Recurrent C. diff colitis. 6. Chronic right internal jugular thrombosis. 7. Rheumatoid arthritis on chronic steroid use with chronic steroid usage. 8. Essential hypertension. 9. Long-term anticoagulation with Xarelto. 10. Acute blood loss anemia on anemia of chronic disease. 11. Stage 3 chronic kidney disease. HISTORY OF PRESENT ILLNESS: The patient was admitted from the Transitional Care Unit. He had been diagnosed with a hip infection in late October and had been on IV antibiotics through January 07. The wound had started to drain more and so the decision was made to do an I and D and then place a wound VAC. LABORATORY DATA: On the day after admission, sodium 145, potassium 4.8, chloride 110, CO2 28, BUN 28, and creatinine 1. These values at discharge sodium 137, potassium 4.6, BUN 18, and creatinine 1.4. Second hospital day, white blood cell count 9.6, hemoglobin 8.7, hematocrit 30.4, and platelet count 207. His hemoglobin did steadily drop to 7.4, 7.2, and it was 7.8, on discharge day. Platelet count was 207 on admission, most prior to discharge was 180. Culture data of left hip wound grew out Pseudomonas aeruginosa and Enterococcus faecium. HOSPITAL COURSE: The patient was admitted after undergoing a left hip I and D and wound closure with application of a wound VAC. Please see Dr. Drew's op note for full details. The patient was admitted on and did undergo routine postop care. The hospitalists were asked to follow along. Initially, his pain was fairly well-controlled. We did use Valentines for pain control. He was monitored on telemetry. On the , his wound cultures came back positive for Pseudomonas aeruginosa and Enterococcus. At that time, ID was consulted by phone and the decision was made to place him on Zyvox and Zosyn. The patient did initiate the antibiotics. It was felt that he could return to TCU on the to complete the antibiotics and to be seen by Infectious PATIENT'S NAME: DEVON HANDY [facility] AGE: 82 Y [address] ROOM: [place] [address] LOCATION: [facility] [place] ADMIT DATE: 01/22/2017 Discharge Summary DISCHARGE DATE: 01/26/2017 FAMILY PHYSICIAN: Marcos Dan MD ATTENDING PHYSICIAN: Devendra Drew when they were here this week. DISCHARGE INSTRUCTIONS: ID to see him on January 30, he is to have a high- protein diet, weightbearing as tolerated, PT and OT has worked weekly, CBC, Chem panel, sed rate, and C-reactive protein every Thursday, Colbert catheters in place for urinary retention with a goal to remove it when he is more active. DISCHARGE MEDICATIONS: 1. Vancomycin 125 mg twice daily for C. diff prevention. 2. Zyvox 600 mg twice daily. 3. IV Zosyn 3.375 g IV q.8 h. 4. Bumex 1 mg daily. 5. Citracal with D one twice daily. 6. Coreg 3.125 mg twice daily. 7. Vitamin D 2000 units daily. 8. Feosol 325 mg daily. 9. Protonix 40 mg daily. 10. Metamucil 1 packet daily. 11. Xarelto 20 mg daily. 12. Florastor 250 mg twice daily. 13. Flomax 0.4 mg at bedtime. 14. Tylenol 650 mg every 6 hours as needed. 15. Valentines 5/325 1-2 every 4 hours as needed for pain. 16. Dulcolax 10 mg per rectum as needed for constipation. 17. Chloraseptic spray 1 spray every 2 hours as needed for sore throat. 18. Benadryl 25 to 50 every 6 hours as needed for itching. 19. Lidocaine for IV start. 20. Milk of mag 30 mL daily as needed for constipation. 21. MiraLAX 17 g daily as needed. 22. Fleet's enema as needed. 23. Lexapro 20 mg daily. MD SUSANA WILHELM/pastoral /[id number] CC: MD Devendra Josue DO d: 01/27/17 0358 t: 03/11/17 1335, DISCHARGE SUMMARY
--- NOTE | ~2017-01-26 | PN ---
PATIENT'S NAME: DEVON HANDY [facility] AGE: 82 Y [address] ROOM: [id number] [place], [place] [address] LOCATION: [facility] ADMIT DATE: 01/26/2017 Progress Notes DISCHARGE DATE: FAMILY PHYSICIAN: Marcos Dan MD ATTENDING PHYSICIAN: REMINGTON DREW Corrected Copy 02/09/17 AO DATE OF SERVICE: 01/28/2017 SUBJECTIVE: The patient reports to be very tired today, which he has been for the last few days according to the patient. He denies any lightheadedness, dizziness, while lying down. He does have some occasional lightheadedness if he gets up to go to the bathroom. He states that it is a difficult task for him to get up and ambulate with his left lower extremity with recent surgery. For this reason, he does still have a Colbert in place. He reports to have fatigue. Reports pain is decreased to approximately 2/10 and controls well with medication. Reports to have pain in all of his joints at this time, but he does have history of rheumatoid and osteoarthritis. The patient is currently symptomatic for acute blood loss with fatigue; however, has no other symptoms including hypotension or lightheadedness. The patient denies any numbness, tingling, or shooting pains down into his foot. No calf pain. No shortness of breath or chest pain. No nausea, vomiting, or diarrhea. OBJECTIVE: Prevena dressing is intact saturated with a bloody serous drainage. Approximately one quarter of canister emptied on Thursday 2 days ago. The patient is neurologically intact sensation left lower extremity. Knee flexion is 0 to 100 without pain. Dorsiflexion, plantarflexion, and extensor hallucis longus are intact. Dorsal pedal pulse and posterior tibial pulses is 2+. A 2+ pitting edema left lower extremity. Currently, in Garcia's traction. AWILDA hose bilaterally in place. No heat or erythema present. LABORATORY DATA: Relevant labs hemoglobin yesterday was 7.6, CRP 01/27/2017 is 3.23, ESR 01/27/2017 is 61, elevated from 01/21/2017 at 34. The patient's white count is 8.5. ASSESSMENT: 1. Status post left hip repeat irrigation and debridement with closure, implantation of antibiotic spacers and antibiotic beads, done on 01/22/[address] Drew, postoperative day #6. 2. Acute blood loss, status post surgery. PLAN: 1. Continue with PT, OT daily and progression as tolerated. Weightbearing PATIENT'S NAME: DEVON HANDY [facility] AGE: 82 Y [address] ROOM: [place] [address] LOCATION: [facility] ADMIT DATE: 01/26/2017 Progress Notes DISCHARGE DATE: FAMILY PHYSICIAN: Marcos Dan MD ATTENDING PHYSICIAN: REMINGTON DREW status is nonweightbearing left lower extremity remained in Garcia's traction. Continue Bumex daily per hospitalist for lower extremity edema. Continue to monitor. Continue antibiotics per Infectious Disease with the use of IV Zosyn and Zyvox. I did discuss the case with Dr. Drew today and agreed with the plan of care. Continue antibiotics per Infectious Disease and physical therapy and progression as tolerated. Prevena dressing will remain on for 2 weeks from surgery. We will therefore remove next week on approximately 02/06/2016. At that time, we will decide the next step in the plan of care regarding wound care whether or not to replace a Prevena or put a wound VAC on based on how the incision site looks. 2. Continue to monitor the patient for symptoms of acute blood loss anemia. If displays symptoms, please call myself or hospitalist and we will write an order to transfuse 2 units of packed red blood cells. Obtain hemoglobin and hematocrit in the morning, currently 7.6, if it trends down, would like to transfuse. 3. I will speak with the patient's today regarding his status as she is concerned about his swelling. I will also collaborate with the hospitalist as needed. CARY VALLES PA-C FOR REMINGTON DREW, DO DARYL/olivia /[id number] Corrected Copy 02/09/17 AO d: 01/28/17 2303 t: 03/17/17 0747, PROGRESS NOTES
[2017-01-27 04:56] LABS: ALK PHOS 165 IU/L (33-138); ALT 13 IU/L (12-78); AST 16 IU/L (10-40); BLOOD UREA NITROGEN 17 mg/dL (6-24); CALCIUM 7.6 mg/dL (8.5-10.5); CHLORIDE 105 mMol/L (96-110); CO2 24 mMol/L (22-32); CREATININE 1.1 mg/dL (0.6-1.3); SODIUM 137 mMol/L (135-145)
[2017-01-27 04:57] LABS: ALBUMIN 1.9 gm/dL (3.5-5.0); ESTIMATED GFR (MDRD EQUATION) > 60; TOTAL BILIRUBIN 0.3 mg/dL (0.0-1.5); TOTAL PROTEIN 4.8 g/dL (6.0-8.4)
[2017-01-27 05:02] LABS: BASOPHIL % 0.4 %; EOSINOPHIL # 0.7 K/uL (0.0-0.5); EOSINOPHIL % 7.6 %; HEMATOCRIT 26.1 % (33.0-50.0); IMMATURE GRANULOCYTE % 0.5 %; LYMPHOCYTE # 1.8 K/uL (0.8-4.0); LYMPHOCYTE % 21.2 %; MCH 25.2 pg (27.0-34.0); MCHC 29.1 gm/dL (32.0-36.5); MCV 86.7 fl (83.0-98.0); MONOCYTE # 0.8 K/uL (0.0-1.0); MONOCYTE % 9.5 %; MPV 10.5 fl (9.4-12.4); NEUTROPHIL # (ANC) 5.2 K/uL (1.4-9.0); NEUTROPHIL % 60.8 %; NRBC % 0 /100WBC (0-0.00); PLATELET COUNT 194 K/uL (150-450); RBC 3.01 M/uL (3.50-5.50); RDW-CV 16.3 % (11.9-14.6); WBC 8.5 K/uL (4.0-11.0)
[2017-01-27 05:03] LABS: HEMOGLOBIN 7.6 g/dL (11.0-16.0)
[2017-01-30 05:48] LABS: HEMATOCRIT 24.1 % (33.0-50.0)
[2017-01-30 05:49] LABS: HEMOGLOBIN 7.1 g/dL (11.0-16.0)
[2017-02-02 05:32] LABS: ALK PHOS 138 IU/L (33-138); ALT 10 IU/L (12-78); ANION GAP 13.1 (10.0-19.0); AST 11 IU/L (10-40); BLOOD UREA NITROGEN 13 mg/dL (6-24); CALCIUM 7.5 mg/dL (8.5-10.5); CHLORIDE 108 mMol/L (96-110); CO2 26 mMol/L (22-32); CPK 21 IU/L (35-332); ESTIMATED GFR (MDRD EQUATION) > 60; POTASSIUM 3.1 mMol/L (3.7-5.1); SODIUM 144 mMol/L (135-145)
[2017-02-02 05:33] LABS: ALBUMIN 1.8 gm/dL (3.5-5.0); TOTAL BILIRUBIN 0.4 mg/dL (0.0-1.5)
[2017-02-02 05:42] LABS: BASOPHIL % 0.5 %; EOSINOPHIL # 0.6 K/uL (0.0-0.5); EOSINOPHIL % 7.5 %; HEMATOCRIT 23.3 % (33.0-50.0); IMMATURE GRANULOCYTE # 0.1 K/uL (0.0-0.3); LYMPHOCYTE # 2.1 K/uL (0.8-4.0); LYMPHOCYTE % 26.8 %; MCH 25.6 pg (27.0-34.0); MCHC 29.2 gm/dL (32.0-36.5); MCV 87.6 fl (83.0-98.0); MONOCYTE # 0.9 K/uL (0.0-1.0); MONOCYTE % 12.1 %; MPV 9.8 fl (9.4-12.4); NEUTROPHIL % 52.1 %; NRBC % 0 /100WBC (0-0.00); PLATELET COUNT 201 K/uL (150-450); RBC 2.66 M/uL (3.50-5.50); WBC 7.7 K/uL (4.0-11.0)
[2017-02-02 05:53] LABS: HEMOGLOBIN 6.8 g/dL (11.0-16.0)
[2017-02-03 05:34] LABS: BASOPHIL # 0.1 K/uL (0.0-0.2); BASOPHIL % 0.6 %; EOSINOPHIL # 0.7 K/uL (0.0-0.5); HEMATOCRIT 25.2 % (33.0-50.0); IMMATURE GRANULOCYTE # 0.1 K/uL (0.0-0.3); IMMATURE GRANULOCYTE % 1.1 %; LYMPHOCYTE # 2.3 K/uL (0.8-4.0); LYMPHOCYTE % 27.4 %; MCH 25.5 pg (27.0-34.0); MCHC 29.8 gm/dL (32.0-36.5); MCV 85.7 fl (83.0-98.0); MONOCYTE % 11.6 %; MPV 9.8 fl (9.4-12.4); NEUTROPHIL # (ANC) 4.2 K/uL (1.4-9.0); NEUTROPHIL % 51.3 %; NRBC % 0 /100WBC (0-0.00); PLATELET COUNT 219 K/uL (150-450); RBC 2.94 M/uL (3.50-5.50); RDW-CV 17.2 % (11.9-14.6); WBC 8.2 K/uL (4.0-11.0)
[2017-02-03 05:41] LABS: ALK PHOS 151 IU/L (33-138); ALT 11 IU/L (12-78); ANION GAP 12.3 (10.0-19.0); AST 14 IU/L (10-40); BLOOD UREA NITROGEN 12 mg/dL (6-24); CALCIUM 7.5 mg/dL (8.5-10.5); CHLORIDE 108 mMol/L (96-110); CO2 26 mMol/L (22-32); ESTIMATED GFR (MDRD EQUATION) > 60; POTASSIUM 3.3 mMol/L (3.7-5.1); SODIUM 143 mMol/L (135-145)
[2017-02-03 05:43] LABS: ALBUMIN 1.8 gm/dL (3.5-5.0); HEMOGLOBIN 7.5 g/dL (11.0-16.0); TOTAL BILIRUBIN 0.5 mg/dL (0.0-1.5)
[2017-02-09 06:08] LABS: BASOPHIL # 0.1 K/uL (0.0-0.2); BASOPHIL % 0.8 %; EOSINOPHIL # 0.9 K/uL (0.0-0.5); EOSINOPHIL % 9.5 %; HEMATOCRIT 28.2 % (33.0-50.0); HEMOGLOBIN 8.1 g/dL (11.0-16.0); IMMATURE GRANULOCYTE # 0.1 K/uL (0.0-0.3); IMMATURE GRANULOCYTE % 0.8 %; LYMPHOCYTE # 1.9 K/uL (0.8-4.0); LYMPHOCYTE % 20.8 %; MCH 25.1 pg (27.0-34.0); MCHC 28.7 gm/dL (32.0-36.5); MCV 87.3 fl (83.0-98.0); MONOCYTE # 0.9 K/uL (0.0-1.0); MONOCYTE % 10.2 %; MPV 10.5 fl (9.4-12.4); NEUTROPHIL # (ANC) 5.3 K/uL (1.4-9.0); NEUTROPHIL % 57.9 %; NRBC % 0 /100WBC (0-0.00); RBC 3.23 M/uL (3.50-5.50); RDW-CV 17.1 % (11.9-14.6); WBC 9.1 K/uL (4.0-11.0)
[2017-02-09 06:11] LABS: PLATELET COUNT 312 K/uL (150-450)
[2017-02-10 06:27] LABS: BASOPHIL # 0.1 K/uL (0.0-0.2); BASOPHIL % 0.9 %; EOSINOPHIL % 11.1 %; HEMATOCRIT 27.2 % (33.0-50.0); IMMATURE GRANULOCYTE # 0.1 K/uL (0.0-0.3); IMMATURE GRANULOCYTE % 0.8 %; LYMPHOCYTE # 1.9 K/uL (0.8-4.0); LYMPHOCYTE % 21.3 %; MCH 25.6 pg (27.0-34.0); MCHC 29.4 gm/dL (32.0-36.5); MCV 86.9 fl (83.0-98.0); MONOCYTE # 0.8 K/uL (0.0-1.0); MONOCYTE % 9.5 %; MPV 10.1 fl (9.4-12.4); NEUTROPHIL % 56.4 %; NRBC % 0 /100WBC (0-0.00); PLATELET COUNT 321 K/uL (150-450); RBC 3.13 M/uL (3.50-5.50); RDW-CV 17.2 % (11.9-14.6); WBC 8.8 K/uL (4.0-11.0)
[2017-02-10 06:29] LABS: ALBUMIN 2.1 gm/dL (3.5-5.0); ALK PHOS 154 IU/L (33-138); ANION GAP 9.5 (10.0-19.0); AST 13 IU/L (10-40); BLOOD UREA NITROGEN 17 mg/dL (6-24); CALCIUM 7.6 mg/dL (8.5-10.5); CHLORIDE 111 mMol/L (96-110); CO2 28 mMol/L (22-32); CPK 23 IU/L (35-332); ESTIMATED GFR (MDRD EQUATION) > 60; POTASSIUM 3.5 mMol/L (3.7-5.1); SODIUM 145 mMol/L (135-145); TOTAL BILIRUBIN 0.4 mg/dL (0.0-1.5); TOTAL PROTEIN 5.2 g/dL (6.0-8.4)
[2017-02-10 06:30] LABS: ALT < 10 IU/L (12-78)
[2017-02-16 04:54] LABS: ALBUMIN 2.2 gm/dL (3.5-5.0); ANION GAP 12.2 (10.0-19.0); CREATININE 1.3 mg/dL (0.6-1.3); POTASSIUM 4.2 mMol/L (3.7-5.1); TOTAL BILIRUBIN 0.4 mg/dL (0.0-1.5); TOTAL PROTEIN 5.5 g/dL (6.0-8.4)
[2017-02-16 05:25] LABS: BASOPHIL # 0.1 K/uL (0.0-0.2); EOSINOPHIL # 1.1 K/uL (0.0-0.5); EOSINOPHIL % 12.8 %; HEMATOCRIT 29.6 % (33.0-50.0); HEMOGLOBIN 8.6 g/dL (11.0-16.0); IMMATURE GRANULOCYTE % 0.5 %; LYMPHOCYTE % 23.9 %; MCH 25.5 pg (27.0-34.0); MCHC 29.1 gm/dL (32.0-36.5); MCV 87.8 fl (83.0-98.0); MONOCYTE # 0.9 K/uL (0.0-1.0); MONOCYTE % 11.1 %; MPV 10.6 fl (9.4-12.4); NEUTROPHIL # (ANC) 4.2 K/uL (1.4-9.0); NEUTROPHIL % 50.7 %; NRBC % 0 /100WBC (0-0.00); PLATELET COUNT 292 K/uL (150-450); RBC 3.37 M/uL (3.50-5.50); RDW-CV 18.1 % (11.9-14.6); WBC 8.3 K/uL (4.0-11.0)
[2017-02-23 04:59] LABS: ALBUMIN 2.3 gm/dL (3.5-5.0); ANION GAP 12.2 (10.0-19.0); CALCIUM 8.1 mg/dL (8.5-10.5); CREATININE 1.3 mg/dL (0.6-1.3); POTASSIUM 4.2 mMol/L (3.7-5.1); TOTAL BILIRUBIN 0.3 mg/dL (0.0-1.5); TOTAL PROTEIN 5.5 g/dL (6.0-8.4)
[2017-02-23 05:09] LABS: BASOPHIL # 0.1 K/uL (0.0-0.2); BASOPHIL % 1.2 %; EOSINOPHIL # 1.1 K/uL (0.0-0.5); EOSINOPHIL % 14.3 %; HEMATOCRIT 32.8 % (33.0-50.0); HEMOGLOBIN 9.4 g/dL (11.0-16.0); IMMATURE GRANULOCYTE % 0.5 %; LYMPHOCYTE # 2.1 K/uL (0.8-4.0); MCH 25.3 pg (27.0-34.0); MCHC 28.7 gm/dL (32.0-36.5); MCV 88.4 fl (83.0-98.0); MONOCYTE # 0.9 K/uL (0.0-1.0); MONOCYTE % 11.8 %; MPV 11.2 fl (9.4-12.4); NEUTROPHIL # (ANC) 3.3 K/uL (1.4-9.0); NEUTROPHIL % 44.2 %; NRBC % 0 /100WBC (0-0.00); RBC 3.71 M/uL (3.50-5.50); RDW-CV 18.9 % (11.9-14.6); WBC 7.5 K/uL (4.0-11.0)
[2017-02-23 05:12] LABS: PLATELET COUNT 215 K/uL (150-450)
[2017-03-02 05:30] LABS: ALBUMIN 2.5 gm/dL (3.5-5.0); ANION GAP 9.1 (10.0-19.0); CALCIUM 8.2 mg/dL (8.5-10.5); CREATININE 1.4 mg/dL (0.6-1.3); POTASSIUM 4.1 mMol/L (3.7-5.1); TOTAL BILIRUBIN 0.3 mg/dL (0.0-1.5); TOTAL PROTEIN 5.7 g/dL (6.0-8.4)
[2017-03-02 05:39] LABS: BASOPHIL # 0.1 K/uL (0.0-0.2); BASOPHIL % 0.7 %; EOSINOPHIL % 13.6 %; HEMATOCRIT 34.7 % (33.0-50.0); HEMOGLOBIN 10.1 g/dL (11.0-16.0); IMMATURE GRANULOCYTE % 0.4 %; LYMPHOCYTE % 26.4 %; MCHC 29.1 gm/dL (32.0-36.5); MCV 89.4 fl (83.0-98.0); MONOCYTE # 0.8 K/uL (0.0-1.0); MONOCYTE % 10.7 %; MPV 11.1 fl (9.4-12.4); NEUTROPHIL # (ANC) 3.7 K/uL (1.4-9.0); NEUTROPHIL % 48.2 %; NRBC % 0 /100WBC (0-0.00); PLATELET COUNT 186 K/uL (150-450); RBC 3.88 M/uL (3.50-5.50); RDW-CV 19.3 % (11.9-14.6); WBC 7.6 K/uL (4.0-11.0)
[2017-03-09 05:29] LABS: ALBUMIN 2.6 gm/dL (3.5-5.0); ANION GAP 13.2 (10.0-19.0); CALCIUM 9.1 mg/dL (8.5-10.5); CREATININE 1.2 mg/dL (0.6-1.3); POTASSIUM 4.2 mMol/L (3.7-5.1); TOTAL PROTEIN 5.8 g/dL (6.0-8.4)
[2017-03-09 05:30] LABS: TOTAL BILIRUBIN 0.4 mg/dL (0.0-1.5)
[2017-03-09 05:34] LABS: BASOPHIL # 0.1 K/uL (0.0-0.2); BASOPHIL % 0.8 %; EOSINOPHIL # 1.1 K/uL (0.0-0.5); EOSINOPHIL % 13.5 %; HEMATOCRIT 37.2 % (33.0-50.0); HEMOGLOBIN 10.9 g/dL (11.0-16.0); IMMATURE GRANULOCYTE % 0.5 %; LYMPHOCYTE # 2.3 K/uL (0.8-4.0); LYMPHOCYTE % 28.9 %; MCH 25.9 pg (27.0-34.0); MCHC 29.3 gm/dL (32.0-36.5); MCV 88.4 fl (83.0-98.0); MONOCYTE # 0.9 K/uL (0.0-1.0); MONOCYTE % 11.6 %; MPV 11.3 fl (9.4-12.4); NEUTROPHIL # (ANC) 3.6 K/uL (1.4-9.0); NEUTROPHIL % 44.7 %; NRBC % 0 /100WBC (0-0.00); PLATELET COUNT 221 K/uL (150-450); RBC 4.21 M/uL (3.50-5.50); RDW-CV 19.2 % (11.9-14.6)
[2017-03-16] MEDS ORDERED: BUMEX1 MG (13:49)
[2017-03-16] MEDS ORDERED: FLOMAX0.4 MG (13:50)
[2017-03-16] MEDS ORDERED: LEXAPRO20 MG (13:51)
[2017-03-16] MEDS ORDERED: FLORASTOR250 MG (13:51)
[2017-03-16] MEDS ORDERED: METAMUCIL PACKE1 PKT (13:53)
[2017-03-16] MEDS ORDERED: PROTONIX40 MG (13:54)
[2017-03-16] MEDS ORDERED: XARELTO20 MG (13:55)
[2017-03-16] MEDS ORDERED: ENSURE LIQUID237 ML (13:57)
[2017-03-16] MEDS ORDERED: BENADRYL25 MG (13:58)
[2017-03-16] MEDS ORDERED: ENEMA BOTTLE1 EACH (13:58)
[2017-03-16] MEDS ORDERED: NYSTATIN1 EAC1 (13:59)
[2017-03-16] MEDS ORDERED: NORCO 10-325 T1 EACH (13:59)
[2017-04-10] MEDS ORDERED: BOOST BREEZE237 ML PO (09:39)
[2017-04-10] MEDS ORDERED: CIPRO500 MG PO (09:40)
[2017-04-10] MEDS ORDERED: COLACE100 MG PO (09:42)
[2017-04-10] MEDS ORDERED: CALCIUM 600 +1 EA13 PO (09:42)
[2017-04-10] MEDS ORDERED: PROLIA60 MG/ML SUB-Q (09:44)
[2017-04-10] MEDS ORDERED: OXYGEN M-15 INH ×2 (09:45→11:11)
[2017-04-10] MEDS ORDERED: MAALOX LIQ UNIT30 ML PO (09:46)
[2017-04-10] MEDS ORDERED: FLOMAX0.4 MG PO (09:46)
[2017-04-10] MEDS ORDERED: METAMUCIL PACK3.4 GM PO (09:47)
[2017-04-10] MEDS ORDERED: TYLENOL325 MG PO (09:48)
[2017-04-10] MEDS ORDERED: DELTASONE5 MG PO (09:48)
[2017-04-10] MEDS ORDERED: IRON65 PO (09:49)
[2017-04-10] MEDS ORDERED: BENADRYL25 MG PO (09:50)
[2017-04-10] MEDS ORDERED: FLORASTOR250 MG PO (09:51)
[2017-04-10] MEDS ORDERED: FLEET ENEMA133 ML R (09:51)
[2017-04-10] MEDS ORDERED: TRIAMCINOLONE 080 GM TOP (09:52)
[2017-04-10] MEDS ORDERED: BUMEX1 MG PO (10:45)
[2017-04-10] MEDS ORDERED: PROTONIX40 MG PO (10:47)
[2017-04-10] MEDS ORDERED: VANCOCIN HCL125 MG PO (10:49)
[2017-04-10] MEDS ORDERED: NYSTATIN1 EAC2 TOP (11:11)
== END 2017-03-10 13:01 | DRG 560 ==
LOC: GSNF 13:49
PROVIDERS: Family Medicine; Internal Medicine Infectious Disease; Orthopaedic Surgery; Physician Assistant; ADMIT Internal Medicine
DX: T84.52XA Infection and inflammatory reaction due to internal left hip prosthesis, initial encounter (principal); I13.0 Hypertensive heart and chronic kidney disease with heart failure and stage 1 through stage 4 chronic kidney disease, or unspecified chronic kidney disease; A04.7 Enterocolitis due to Clostridium difficile; I50.42 Chronic combined systolic (congestive) and diastolic (congestive) heart failure; D62 Acute posthemorrhagic anemia; I82.C21 Chronic embolism and thrombosis of right internal jugular vein; N18.3 Chronic kidney disease, stage 3 (moderate); B96.5 Pseudomonas (aeruginosa) (mallei) (pseudomallei) as the cause of diseases classified elsewhere; B95.2 Enterococcus as the cause of diseases classified elsewhere; D63.1 Anemia in chronic kidney disease; I48.0 Paroxysmal atrial fibrillation; Z79.01 Long term (current) use of anticoagulants; M06.9 Rheumatoid arthritis, unspecified; K21.9 Gastro-esophageal reflux disease without esophagitis; R33.9 Retention of urine, unspecified; E55.9 Vitamin D deficiency, unspecified; Z79.2 Long term (current) use of antibiotics; Z79.52 Long term (current) use of systemic steroids; Z86.14 Personal history of Methicillin resistant Staphylococcus aureus infection; F32.9 Major depressive disorder, single episode, unspecified; K59.00 Constipation, unspecified; E87.6 Hypokalemia; M19.012 Primary osteoarthritis, left shoulder
CPT/HCPCS: J0878; J2020; J2543; J2997; J3370; J7040; J7050; J7512; P9016

== ENCOUNTER → 2017-03-23 | Outpatient (CLI) | payer MEDICARE, BC ==
[~2017-03-23] MED LIST changes: +ALLEGRA180 MG PO; +BENADRYL25 MG; +BENADRYL25 MG PO; +BOOST BREEZE237 ML PO; +BUMEX1 MG; +BUMEX1 MG PO; +BUSPIRONE HCL15 MG PO; +CALCIUM 600 +1 EA13 PO; +CIPRO500 MG PO; +ENEMA BOTTLE1 EACH; +ENEMA READY TO133 ML R; +ENSURE LIQUID237 ML; +FLEET ENEMA133 ML R; +FLOMAX0.4 MG; +FLOMAX0.4 MG PO; +FLORASTOR250 MG; +FLORASTOR250 MG PO; +HYDROCODON-ACE1 EAC4 PO; +IMODIUM2 MG PO; +IRON65 PO; +LEXAPRO20 MG; +METAMUCIL PACK3.4 GM PO; +METAMUCIL PACKE1 PKT; +NORCO 10-325 T1 EACH; +NYSTATIN1 EAC1; +NYSTATIN1 EAC2 TOP; +OXYGEN M-15 INH; +PROLIA60 MG/ML SUB-Q; +PROTONIX40 MG; +PROTONIX40 MG PO; +TRIAMCINOLONE 080 GM TOP; +TYLENOL EXTRA500 MG PO; +TYLENOL325 MG PO; +VANCOCIN HCL125 MG PO; +XARELTO20 MG
== END | disposition disaster alternative care site (69) ==
LOC: GRAD 12:19
PROC: 0S9B3ZZ Drainage of Left Hip Joint, Percutaneous Approach (ICD-10-PCS; principal; 2017-03-23)
DX: Z47.1 Aftercare following joint replacement surgery (principal); Z96.642 Presence of left artificial hip joint

== ENCOUNTER → 2017-04-03 | Outpatient (CLI) | payer MEDICARE, BC ==
--- NOTE | ~2017-04-03 | ENPV ---
Vascular Lower Extremities DVT Study Procedure Demographics Patient Name DEVON HANDY Date of Study 04/03/2017 N Patient Number [id number] Gender Male Date of 1935 Age 82 Visit Number [id number] Height Accession Number [id number] Weight Room Number BSA BMI Referring Sy Flores MD Interpreting Salvador Mcelroy MD Physician Physician Physician Ordering Physician Marlon Siegel MD [employer] Director Of Loss Prevention Marcellus Suero T, [facility] Conclusions Summary No evidence of deep vein thrombosis or superficial thrombophlebitis in the left lower extremity . Procedure Type of Study: Veins:Lower Extremities DVT Study, Lower Extremity Left. Appropriate Use Criteria:7 Patient Status:Routine. Study Location:Vascular Lab. Technical Quality:Adequate visualization. - Preliminary reported to:Dr Mason at 1605. Velocities are measured in cm/s ; Diameters are measured in cm Right Lower Extremities DVT Study Measurements Right 2D and Doppler Measurements + + + + +------+------+ + !Location !Visualized!Compressibility!Thrombosis!Signal!Reflux!Reflux ! ! ! ! ! ! ! !(sec) ! + + + + +------+------+ + !GSV Thigh !Yes !Yes !None !Phasic! ! ! + + + + +------+------+ + !Common !Yes !Yes !None !Phasic! ! ! !Femoral ! ! ! ! ! ! ! + + + + +------+------+ + Left Lower Extremities DVT Study Measurements Left 2D and Doppler Measurements + + + + +---------+------+--------+ !Location !Visualized!Compressibility!Thrombosis!Signal !Reflux!Reflux ! ! ! ! ! ! ! !(sec) ! + + + + +---------+------+--------+ !GSV Thigh !Yes !Yes !None !Phasic ! ! ! + + + + +---------+------+--------+ !Common !Yes !Yes !None !Pulsatile! ! ! !Femoral ! ! ! ! ! ! ! + + + + +---------+------+--------+ !Prox !Yes !Yes !None !Phasic ! ! ! !Femoral ! ! ! ! ! ! ! + + + + +---------+------+--------+ !Mid !Yes !Yes !None !Phasic !No ! ! !Femoral ! ! ! ! ! ! ! + + + + +---------+------+--------+ !Dist !Yes !Yes !None !Phasic ! ! ! !Femoral ! ! ! ! ! ! ! + + + + +---------+------+--------+ !Popliteal !Yes !Yes !None !Phasic ! ! ! + + + + +---------+------+--------+ !PTV !Yes !Yes !None !Phasic !No ! ! + + + + +---------+------+--------+ !Peroneal !Yes !Yes !None !Phasic ! ! ! + + + + +---------+------+--------+ Signature dtt: EVE VALENTE dtd: 04/03/17 1532 Physician Self Edit
== END | disposition disaster alternative care site (69) ==
LOC: GCAR 15:30
DX: M79.662 Pain in left lower leg (principal); M79.89 Other specified soft tissue disorders; Z96.642 Presence of left artificial hip joint

== ENCOUNTER → 2017-04-06 | Outpatient (CLI) | payer MEDICARE, BC ==
[2017-04-06 17:22] LABS: BILIRUBIN URINE NEGATIVE (NEGATIVE); BLOOD URINE 150 /UL (NEGATIVE); COLOR URINE YELLOW (YELLOW); GLUCOSE URINE NEGATIVE (NEGATIVE); KETONE URINE NEGATIVE (NEGATIVE); LEUKOCYTES URINE 500 /UL (NEGATIVE); NITRITE URINE POSITIVE (NEGATIVE); PROTEIN URINE 15 mg/dL (NEGATIVE); SPEC GRAVITY URINE 1.015 (1.003-1.035); TURBIDITY URINE 2+ (CLEAR); UROBILINOGEN URINE NORMAL (NORMAL)
[2017-04-06 18:00] LABS: BACTERIA URINE MANY (NEGATIVE); MUCUS URINE 1+ (NEGATIVE); WBC URINE 20-50 #/HPF (NEGATIVE)
[2017-04-06 18:01] LABS: AMORPHOUS URINE 2+ (NEGATIVE); WBC CLUMPS URINE MODERATE (NEGATIVE); YEAST URINE MODERATE (NEGATIVE)
== END ==
LOC: LHULL 17:15
PROVIDERS: Internal Medicine
DX: Z87.440 Personal history of urinary (tract) infections (principal)

== ENCOUNTER 2017-05-22 | Inpatient (IN) | payer MEDICARE, BC ==
[~2017-05-22] VITALS: Ht 185.4 cm; Wt 102.3 kg
[~2017-05-22] MED LIST changes: -ALLEGRA180 MG PO; -BUSPIRONE HCL15 MG PO; -ENEMA READY TO133 ML R; -HYDROCODON-ACE1 EAC4 PO; -IMODIUM2 MG PO; -TYLENOL EXTRA500 MG PO
--- NOTE | ~2017-05-22 | DS ---
[facility] AGE[facility] 82 Y [address] ROOM: [address] [place], [place] [address] LOCATION: [facility] ADMIT DATE: 05/29/2017 Discharge Summary DISCHARGE DATE: 06/03/2017 FAMILY PHYSICIAN: Marcos Dan MD ATTENDING PHYSICIAN: Bill Mason FINAL DIAGNOSES: 1. Left hip infection with Pseudomonas, status post treatment with re- implant of the left total hip. 2. Shock, postoperative. 3. Acute on chronic hypoxic respiratory failure. 4. Acute blood loss anemia. 5. Anemia of chronic disease. 6. Long-term anticoagulation. 7. Paroxysmal atrial fibrillation. 8. Chronic diastolic and systolic congestive heart failure. 9. Stage 3 chronic kidney disease. 10. Chronic obstructive pulmonary disease. 11. Rheumatoid arthritis, on long-term steroid usage. 12. Urinary retention with Colbert catheter replacement. SURGERIES: A left total hip re-implant on May [address] Bill Mason. REASON FOR ADMISSION: The patient was brought back for a planned re- implantation of his left total hip. He had been treated with antibiotics and felt to be stable long enough for re-implantation. LABORATORY DATA: ABG on May 29 pH of 7.30, pCO2 of 53, pO2 of 100. Lactate on May 29 was 0.85, repeat was 1.9, on May 30 it was 1. Sodium on admission 144, discharge 143. Potassium on admission was 4.2, discharge 3.7. CO2 on admission was 24, discharge 29. BUN on admission was 32, discharge 21. Creatinine on admission was 1.1, discharge 1. Phosphorus on admission was 5.3 and was 2.3 on May 31, discharge 3. Magnesium on admit was 1.8, discharge 2. Pre-albumin on June 01 was 12. White blood cell count on admission 10.2, discharge 5.7. Hemoglobin on admission was 10, it did slowly decline, got as low as 7.4 on June 01 and most prior to discharge, it was 8.6. Platelet count on admission was 141, it did drop, and most prior to discharge it was 99. MICROBIOLOGY DATA: Synovial fluid from the hip was negative. RADIOLOGY STUDIES: Chest x-ray on May 29 and postop showed questionable tracheal opacity. [facility] AGE: 82 Y [address] ROOM: [id number] [place], [place] [address] LOCATION: [facility] ADMIT DATE: 05/29/2017 Discharge Summary DISCHARGE DATE: 06/03/2017 FAMILY PHYSICIAN: Marcos Dan MD ATTENDING PHYSICIAN: Bill Mason [facility] COURSE: The patient did experience hypotension during the cardiac procedure and was on IV pressors. These were not able to be weaned postoperatively. The patient was admitted into the intensive care unit, and the hospitalists were consulted. He was started on vancomycin perioperatively. With the hypotension, he had received albumin, fluid, and did eventually require a ladi drip. Postoperatively, on the first postoperative day, overall he was doing quite well. He has been worked up for an infection. There are really no signs of the infection present. His pain was well controlled. He did receive one dose of Levaquin for possible infection, but on the second hospital day, he was afebrile, his white blood cell count was improving, and there is no evidence of infection, so the Levaquin was not continued. He did continue to receive albumin infusions to try and raise his blood pressure and weaning him off the ladi. His hemoglobins were marginal, but we did not require a transfusion. PT/OT did work with him. They were able to get him to stand. We were able to get him slowly wean off the ladi. He had good urine output. He did receive a fair amount of fluid, so he was volume overloaded. We did give him albumin, then followed by Desirae to try and mobilize the fluid. He was able to be moved out of the intensive care unit on June 01. He did move to [address] [place] [address]. We were able to resume his medications. PT/OT did continue to work with him. He did stand which he had not done for 6 months and was able to the ambulate and would take a few short steps. He was doing so well. We were able to wean him off the oxygen that he had required postoperatively. We felt that he was stable to return to his previous skilled facility. DISCHARGE INSTRUCTIONS: He is to follow up with Dr. Bill Mason on June 09. He is to have a regular diet. He is to be weightbearing as tolerated with fall precautions. He is to have 2 L at night to keep his sats greater than 90%. He is to leave his dressing in place over the left hip. He had Colbert catheter which remained in place. This had been in place since October, and we spoke with Dr. Lake. The plan was for him to follow up with Dr. Lake in 2 weeks as an outpatient at which time, they would attempt to remove the Colbert catheter. DISCHARGE MEDICATIONS: 1. Tylenol 1000 mg every 6 hours as needed for pain and temp. 2. BuSpar 15 mg twice daily. 3. Carvedilol 3.125 mg twice daily. 4. Lexapro 20 mg a day. 5. Feosol 325 mg daily. 6. Benadryl 25-50 mg every 6 hours as needed. 7. Es 180 mg daily. 8. Protonix 40 mg daily. 9. MiraLAX 17 g every 24 hours as needed. 10. Metamucil 3.4 g pack daily. PATIENT'S NAME: DEVON HANDY [facility] AGE: 82 Y [address] ROOM: [place] [address] LOCATION: [facility] ADMIT DATE: 05/29/2017 Discharge Summary DISCHARGE DATE: 06/03/2017 FAMILY PHYSICIAN: Marcos Dan MD ATTENDING PHYSICIAN: Bill Mason 11. Fleet enema daily as needed for severe constipation. 12. Deltasone 5 mg daily. 13. Triamcinolone cream applied to his lower back and nose twice daily. 14. Xarelto 20 mg daily. 15. Florastor 250 mg daily. 16. Flomax 0.4 mg at bedtime. 17. Temple 5/325 one to two every 4 hours as needed for pain. 18. Dulcolax 10 mg per day, suppositories, as needed for constipation. 19. Colace 100 mg twice daily as needed for constipation. 20. Imodium 2 mg as needed for diarrhea. 21. Milk of magnesia 30 mL daily as needed for constipation. 22. Nystatin topically for rash in his groin twice daily as needed. 23. Vitamin D 1000 units daily. 24. O2 at 2 L per nasal cannula at bedtime. 25. Calcium with D one tab twice daily. 26. Maalox 10 mL every 4 hours as needed. 27. Bumex 1 mg p.o. daily. 28. He was sent with a prescription of 60 Temple. PROGNOSIS: Overall prognosis is good. IZZY LANDA MD LAW/modl /[id number] d: 06/04/170 t: 06/11/17 1820, DISCHARGE SUMMARY
--- NOTE | ~2017-05-22 | OR ---
PATIENT'S NAME: DEVON HANDY [facility] AGE: 82 Y [address] ROOM: [place] [address] LOCATION: [facility]ICU ADMIT DATE: 05/29/2017 OR/Procedure Report DISCHARGE DATE: FAMILY PHYSICIAN: Marcos Dan MD ATTENDING PHYSICIAN: FREDERICK GONZALEZ SURGEON: Frederick Gonzaelz MD AIRLINE MANAGER: 1. Dev Smith PA-C. 2. Aiden Frias CST/ENGINEER FIRST ASSISTANT. DATE OF PROCEDURE: 05/29/2017 PREOPERATIVE DIAGNOSES: 1. Status post left hip resection arthroplasty. 2. History of left hip periprosthetic infection (eradicated). 3. Retained antibiotic impregnated cement spacers. 4. Heterotopic ossification. POSTOPERATIVE DIAGNOSES: 1. Status post left hip resection arthroplasty. 2. History of left hip periprosthetic infection (eradicated). 3. Retained antibiotic impregnated cement spacers. 4. Heterotopic ossification. PROCEDURE PERFORMED: Revision left total hip arthroplasty (reimplantation of femoral and acetabular components) plus removal of antibiotic-impregnated cement spacers and extensive lysis of adhesions. Excision of heterotopic ossification. ANESTHESIA: General endotracheal anesthesia plus subcutaneous and periarticular local anesthesia (ropivacaine with epinephrine and Toradol). DRAINS: None. SPECIMEN: 1. Synovial fluid for stat cell count and Gram stain. 2. Synovial fluid for culture. 3. Synovial tissue for culture. EXPLANTS: Femoral and acetabular cement spacers. IMPLANTS: 1. [place] Trident Tritanium size 58 mm hemispherical uncemented acetabular shell with no screws and one dome hole cover. 2. [place] MDM metal liner (size F) 28 mm inner diameter acetabular polyethylene bearing with 46 mm outer diameter. 3. DePuy [place] size 9 standard offset uncemented femoral component with 28 PATIENT'S NAME: DEVON HANDY [facility] AGE: 82 Y [address] ROOM: [place] [address] LOCATION: [facility]ICU ADMIT DATE: 05/29/2017 OR/Procedure Report DISCHARGE DATE: FAMILY PHYSICIAN: Marcos Dan MD ATTENDING PHYSICIAN: FREDERICK GONZALEZ mm femoral head (+5 mm neck length). COMPLICATIONS: None. ESTIMATED BLOOD LOSS: Less than 500 mL. INDICATION FOR PROCEDURE: Mr. Handy is an 82-year-old male, who underwent a left hip arthroplasty with Dr. Devendra Drew last year. His procedure was complicated by instability and infection. He presented on with septicemia and purulent drainage. I first treated the patient at that time. I performed a resection arthroplasty on . The patient required one additional irrigation and debridement. Six weeks of intravenous antibiotics has subsequently been completed. Risks, benefits, limitations, and alternatives to revision total hip arthroplasty (reimplantation) have been thoroughly reviewed with the patient and his spouse. They are aware that he has had significant risk for perioperative morbidity and mortality (including the potential for recurrent infection). They understand and accept us, but he completely unwilling to accept his condition as is and is willing to accept the risks. He is adamantly in favor of proceeding with reimplantation. The patient and his are, in fact, very disappointed that I have not reimplanted him sooner. We have specifically reviewed risks and implications of infection (persistent or recurrent), thromboembolic disease, mortality, neurovascular complications, blood transfusion risks, instability, and potential need for further revision. Informed consent granted. DESCRIPTION OF PROCEDURE: Mr. Handy was placed in a right lateral decubitus position after administration of general endotracheal anesthesia and prophylactic antibiotics. The right leg was well padded. His pelvis was locked perpendicularly to the floor on a pegboard. An axillary roll was placed. Examination of the left hip under anesthesia demonstrated a well-healed direct anterior scar with a significant amount of surrounding subcutaneous adipose atrophy. There was no associated erythema, fluctuance. The left hip and left lower extremity were prepped and draped with vigilant sterile technique. Left hip was approached through a posterolateral incision. The iliotibial band and gluteus eliseo fascia were sharply divided in line with the overlying skin incision. The sciatic nerve was identified and was vigilantly protected throughout the entire case. The piriformis tendon was identified. The remainder of the short external rotators were not identifiable. There was PATIENT'S NAME: DEVON HANDY [facility] AGE: 82 Y [address] ROOM: [place] [address] LOCATION: [facility] ADMIT DATE: 05/29/2017 OR/Procedure Report DISCHARGE DATE: FAMILY PHYSICIAN: Marcos Dan MD ATTENDING PHYSICIAN: FREDERICK GONZALEZ significant fibrosis and thickening periarticular soft tissues. The piriformis tendon and thickened posterior capsule were detached from the femur. There was a moderate amount of benign-appearing translucent serosanguineous synovial fluid. This was sent for stat cell count, Gram stain, and routine cultures. There was significant thickening of the superior, inferior, and anterior capsule. There was no purulence. The femoral and acetabular cement spacers were moved. There was an interbody 2 cm region of heterotopic ossification superior to the acetabulum. This was resected in the process of mobilizing the proximal femur. The femoral canal was reamed to a size 9. The size 9 reamer tightly engaged the endosteal cortex of the proximal femur. The femur was broached to a size 5. The femur had been thoroughly curetted and irrigated with a canal brush prior to initiation reaming. Curettings from the femoral canal were included in the soft tissue that was sent for culture. The patient was noted to be moderately severely osteopenic. The size 9 broach obtained excellent axial and rotational stability. There was significant fibrotic contracture of the gluteus medius muscle. Circumferential acetabular exposure was obtained. The acetabulum was reamed up to a size 57. The size 58 mm acetabular shell was impacted into position at 45 degrees of inclination and 20 degrees of anteversion. An excellent press fit was obtained, and there was no need for supplemental dome screw fixation. A trial liner was placed. A trial reduction was performed. In order to reduce the femur, a circumferential capsulotomy was required. This was necessitated due to the extensive periarticular fibrosis and associated proximal migration of the proximal femur. I was able to regain a significant amount of leg length (but no further leg length to be restored even after a circumferential capsulotomy and extensive capsulectomy). The final acetabular liner was inserted. The mobile bearing femoral head was assembled. The final femoral implant was impacted into position in approximately 15 degrees of anteversion. There was excellent axial and rotational stability. The trunnion was thoroughly cleansed and dried, then the final femoral head construct was impacted into position. A final reduction was performed. The MDM construct was chosen in order to optimize stability given the fact that the patient has now had an anterior and posterior approach to his depth and required extensive periarticular soft tissue releases in order to restore limb length. He is, therefore, proceeds PATIENT'S NAME: DEVON HANDY [facility] AGE: 82 Y [address] ROOM: [place] [address] LOCATION: [facility]ICU ADMIT DATE: 05/29/2017 OR/Procedure Report DISCHARGE DATE: FAMILY PHYSICIAN: Marcos Dan MD ATTENDING PHYSICIAN: FREDERICK GONZALEZ to be at increased risk to develop difficulties with recurrent instability. After the final reduction, the hip could not be anteriorly dislocated with firm combined external rotation and extension in 0 degrees of abduction. Likewise, the hip could be hyperflexed to 120 degrees in 0 degrees of abduction in neutral rotation without instability. At 90 degrees of flexion and 0 degrees of abduction, the hip could be internally rotated to 60 degrees without posterior subluxation. Hemostasis was excellent throughout the entire case. The entire incision and joint space were thoroughly irrigated with bacteriostatic pulsatile saline lavage at this point as well as several times throughout the case. The posterior pseudocapsule was repaired to the posterior aspect of the greater trochanter through 2 drill holes using #1 Ethibond. The sciatic nerve was confirmed to be free of significant tension. The fascia was closed with multiple simple interrupted #1 Ethibond and #1 Vicryl suture. Periarticular soft tissues were injected with local anesthetic. Subcutaneous tissues were re-irrigated. The incision was closed with simple deep interrupted 0 Vicryl followed by superficial buried interrupted 2-0 Vicryl suture in a running subcuticular 3-0 Monocryl suture followed by Dermabond followed by Steri-Strips with benzoin. The dressing consisted of an occlusive Mepilex dressing. The patient was extubated and transported to the Postanesthesia Care Unit in stable, comfortable condition. It should be noted that the physician's automobile mechanic assistant played an active, integral role throughout this entire operation. By providing expert retraction, they greatly facilitated and expedited safe and effective exposure of the proximal femur and acetabulum for preparation and implantation of the components. They were also actively involved in the patient's positioning, prepping and draping, as well as wound closure. MD DARLIN HUERTA/olivia PATIENT'S NAME: DEVON HANDY [facility] AGE: 82 Y [address] ROOM: [address] [place] [id number] LOCATION: [facility] ADMIT DATE: 05/29/2017 OR/Procedure Report DISCHARGE DATE: FAMILY PHYSICIAN: Marcos Dan MD ATTENDING PHYSICIAN: FREDERICK GONZALEZ /[id number] d: 05/29/172120 t: 06/07/172141, OPERATIVE SUMMARY
--- NOTE | ~2017-05-22 | OR ---
PATIENT'S NAME: DEVON HANDY [facility] AGE: 82 Y [address] ROOM: [place] [address] LOCATION: GICU ADMIT DATE: 05/29/2017 OR/Procedure Report DISCHARGE DATE: FAMILY PHYSICIAN: Marcos Dan MD ATTENDING PHYSICIAN: FREDERICK GONZALEZ SURGEON: Edin Jones MD MACHINE PACKER: DATE OF PROCEDURE: 05/29/2017 PROCEDURE: Insertion of a right internal jugular venous catheter. PREPROCEDURE DIAGNOSES: 1. Pre-left total hip revision. 2. Inadequate venous access. POSTPROCEDURE DIAGNOSIS: 1. Pre-left total hip revision. 2. Inadequate venous access. INDICATIONS: The patient is an 82-year-old male who is well-known to the anesthesia service of [facility]. The patient was admitted to undergo a left total hip revision. Due to the potential blood loss, necessitating vigorous fluid and blood resuscitation as well as poor peripheral venous access, we decided to place a central venous catheter that would be used only during the operation. The patient had a prior history of right internal jugular venous thrombosis which has since cleared and a recent ultrasound exam of the right upper venous system verified the absence of clots. PROCEDURE IN DETAIL: The patient had been induced under general anesthesia and was placed in a slight Trendelenburg position. His head was turned to the left. A Site-Rite monitor was used to inspect the right neck and this revealed a small and somewhat deep right internal jugular vein. After appropriate skin markings were made, the neck was prepped and then draped using full barrier drapes. Using ultrasound guidance, an 18-gauge seeker needle was directed towards the right internal jugular vein. However, despite the use of the ultrasound, the right carotid was apparently entered. A bright red blood return was noted and thus the needle was removed and pressure placed over the neck for several minutes. The ultrasound was again placed over the neck and the right internal jugular vein cannulated on the next attempt. A guidewire was threaded through the needle and the needle removed. A small stab incision was made in the neck after which a dilator was passed over the guidewire and then this was followed by the passage of a 16 cm 8.5-Vietnamese 4 lumen catheter. Once the catheter was introduced to the depth of its hub, the guidewire was removed and the lumens of the catheter flushed. The catheter PATIENT'S NAME: DEVON HANDY [facility] AGE: 82 Y [address] ROOM: [id number] [place], [place] [address] LOCATION: [facility] ADMIT DATE: 05/29/2017 OR/Procedure Report DISCHARGE DATE: FAMILY PHYSICIAN: Marcos Dan MD ATTENDING PHYSICIAN: FREDEIRCK GONZALEZ was sutured into place and a sterile dressing applied. The patient tolerated the procedure well. EDIN W MD SOTERO JONES/olivia /[id number] d: 05/31/17 0836 t: 06/11/17 1609, OPERATIVE SUMMARY
--- NOTE | ~2017-05-22 | CON ---
PATIENT'S NAME: DEVON HANDY [facility] AGE: 82 Y [address] ROOM: [place] [address] LOCATION: GICU ADMIT DATE: 05/29/2017 Consultation DISCHARGE DATE: FAMILY PHYSICIAN: Marcos Dan MD ATTENDING PHYSICIAN: FREDERICK GONZALEZ DATE OF CONSULTATION: 05/29/2017 REFERRING PHYSICIAN: Frederick Gonzalez MD REASON FOR CONSULT: Medical management. HISTORY OF PRESENT ILLNESS: Mr. Devon Handy is a very pleasant, 82-year-old male who has a complex history of complications, status post is total hip replacement in 2016. He developed sepsis at [place] and then had the components of the total hip removed. In preparation of having the hip revised, he developed PE and was placed on the Xarelto in late February/March. He is finally deemed ready to have this procedure done today and has been on Lovenox bridging for 5 days. He reported he has labile blood pressure and preoperatively his blood pressure was around 90/60 and is considered about his baseline. During the procedure, he required use of Blair-Synephrine and 2 L of fluid with an approximate 500 mL blood loss. While in the postanesthesia care unit, the patient developed subjective dyspnea despite O2 saturations in the 90s and excellent tidal volumes. He was treated with Gamunex to reverse revisional neuromuscular blocking without improvement and placed on BiPAP /, and did well. His systolic blood pressures remained in the 80s to 90s while he was still being treated with Blair- Synephrine. He was able to be weaned off the BiPAP and on to a nasal cannula with good saturations when I saw him about half an hour ago in the PACU, he was not having any dyspnea, and saturations 96% on 4 L. He is now transferred to the ICU for further management and monitoring. PAST MEDICAL HISTORY: 1. Left hip infection with Pseudomonas aeruginosa, status post irrigation, debridement, wound closure, antibiotic spacers, replaced on January 22. 2. Paroxysmal atrial fibrillation with long-term anticoagulation with Xarelto. 3. Chronic diastolic and systolic congestive heart failure. PATIENT'S NAME: DEVON HANDY [facility] AGE: 82 Y [address] ROOM: [place] [id number] LOCATION: GICU ADMIT DATE: 05/29/2017 Consultation DISCHARGE DATE: FAMILY PHYSICIAN: Marcos Dan MD ATTENDING PHYSICIAN: FREDERICK GONZALEZ 4. Recurrent C. diff colitis. 5. Chronic right internal jugular thrombus. 6. Rheumatoid arthritis, on chronic steroids. 7. Essential hypertension. 8. Anemia of chronic disease. 9. Stage 3 chronic kidney disease. 10. Gastroesophageal reflux disease. 11. Vitamin D deficiency. 12. History of sepsis secondary to urinary tract infection. 13. COPD, O2 dependent. 14. He has an AICD, biventricular pacing. 15. Ischemic cardiomyopathy. PAST SURGICAL HISTORY: 1. Total hip arthroplasty, 11/04/2016, by Dr. Drew. 2. Hammertoe surgeries. 3. Multiple skin biopsies. 4. Irrigation and debridement of left hip with exchange of antibiotic spaces and antibiotic beads, 01/22/2017. SOCIAL HISTORY: He is . He has been in a rehab facility recently. He does not smoke or drink alcohol. FAMILY HISTORY: His mother and brother with coronary artery disease, status post [place]. His father had lung cancer and ulcers. ALLERGIES: NORVASC AND REMERON. MEDICATIONS: 1. Buspirone 15 mg p.o. b.i.d. 2. Calcium carbonate 600 p.o. b.i.d. 3. Carvedilol 3.125 mg p.o. b.i.d. 4. Vitamin D 1000 units daily. 5. Benadryl p.r.n. every 6 hours for pruritus. 6. Docusate 100 mg p.o. b.i.d. p.r.n. constipation. 7. Lexapro 20 mg p.o. daily. 8. Ferrous sulfate 325 mg p.o. daily. 9. Es 150 mg p.o. daily. 10. Hydrocodone 5/325 1-2 tabs p.o. every 4 hours p.r.n. pain. 11. Iron tablet 65 mg p.o. daily. 12. Imodium 2 mg p.o. p.r.n. 13. Milk of magnesia 30 mL p.o. p.r.n. PATIENT'S NAME: FRANKOCAPODEVON [facility] AGE: 82 Y [address] ROOM: [address] [place], [place] [address] LOCATION: [facility] ADMIT DATE: 05/29/2017 Consultation DISCHARGE DATE: FAMILY PHYSICIAN: Marcos Dan MD ATTENDING PHYSICIAN: FREDERICK GONZALEZ 14. Fleet Enema p.r.n. 15. Nystatin powder topically to groin. 16. Pantoprazole 40 mg p.o. q.a.m. 17. MiraLAX p.r.n. daily. 18. Prednisone 5 mg p.o. daily with food. 19. Xarelto 20 mg p.o. daily. 20. Probiotics 250 daily. 21. Flomax 0.4 mg at h.s. 22. Triamcinolone ointment to his back and nose twice daily. REVIEW OF SYSTEMS: GENERAL: The patient reports his weight has been stable. His appetite has been good. He denies any fever. He has not been very active because he cannot walk with his hip, but he does not say he has had excessive fatigue. HEENT: No headache, blurred vision, or dizziness. He does wear glasses. He denies dysphagia or odynophagia. CARDIAC: In the PACU when I saw him, he was denying shortness of breath, cough, wheezing, and chest pain. He says he has no palpitations, but he does occasionally get swelling in his ankles. GASTROINTESTINAL: No nausea or vomiting. He has had diarrhea alternating with constipation. He is never sure what is bringing it on. His last bowel movement was on the of this month. He denies bloating or cramping associated with this or alteration in his bowel habits. He denies hematemesis, hematochezia, or melena. Because of his debility, he has had a Colbert catheter since November of 2016. NEUROLOGIC: He reports 2 drug reactions which caused him mental confusion, one was tramadol, he does not remember the name of the other one. He denies syncopal episode. He did fall in October and that is what precipitated breaking his hip. HEMATOLOGIC: He has a history of anemia. He knows he has had at least 2 blood transfusions, and he does have a history of DVTs, one chronic in his jugular vein, right IJ and right internal jugular, and a peripheral one. MUSCULOSKELETAL: He has chronic hip problem. He has underlying rheumatoid arthritis with shoulder and hand pain, and he says his last bone mineral density in [place] was thought to be "okay" by his doctor. He likely does have osteoporosis related to treatment with steroids for his rheumatoid arthritis. SKIN: He reports a chronic rash on his scrotum and was being treated with nystatin. PSYCHIATRIC: He does have some ongoing anxiety, to which he admits, but no depression and no insomnia. Remainder of the review of systems negative. PHYSICAL EXAMINATION: GENERAL: This is a very pleasant, elderly male, in no acute PATIENT'S NAME: DEVON HANDY [facility] AGE: 82 Y [address] ROOM: [place] [address] LOCATION: [facility] ADMIT DATE: 05/29/2017 Consultation DISCHARGE DATE: FAMILY PHYSICIAN: Marcos Dan MD ATTENDING PHYSICIAN: FREDERICK GONZALEZ. He has a nasal cannula in place. HEENT: Normocephalic and atraumatic. His pupils are equal and round. Sclerae are anicteric. Oropharynx is clear. NECK: Supple. There is a dry bandage on the right neck. No supraclavicular lymphadenopathy. LUNGS: Clear to auscultation bilaterally. CARDIOVASCULAR: Regular rate and rhythm. ABDOMEN: Full, soft, nontender, and nondistended. EXTREMITIES: He has a foot pump from both feet. He has 1+ dorsalis pedis pulses bilaterally. He has TEDs on also. He has no appreciable edema. NEUROLOGIC: He is awake and alert. He is oriented to person, place, and time. He is coherent, pleasant, and able to give a good history. GENITOURINARY: Colbert draining clear wagner urine. The scrotum is red, but mildly so, not very edematous. LABORATORY DATA: Wound culture was obtained intraoperatively today. There were no organisms on the Gram stain. There were moderate white blood cells, many red cells, and a large amount of amorphous material. Renal panel showed sodium 144, potassium 4.2, chloride 112, CO2 25, glucose 210, calcium 7.8, BUN 32, and creatinine 1.0. Albumin 2.7, phosphorus 5.3, eGFR is greater than 60. Lactate was 0.85, within normal limits. His arterial blood gas earlier today showed pH 7.30, CO2 of 53, O2 of 100, bicarb 26. His CBC today showed white count of 10.2, hemoglobin 10.3, hematocrit 33.6, platelets 141, and neutrophil count of 83%, absolute neutrophil count of 8.5, lymphs 10.6, monos 5.7. RADIOGRAPHIC STUDIES: His chest x-ray showed streaky parenchymal opacity, worse at the lateral lower right chest and more left lung base. Cardiac silhouette is within normal limits. Left-sided pacer is stable. No pleural effusion or pneumothorax. ASSESSMENT/PLAN: 1. Status post left total hip revision earlier today with borderline blood pressures, status post 500 ml blood loss in a patient who is status post left septic hip methicillin-resistant Staphylococcus aureus and Pseudomonas infections. He is chronically debilitated, on steroids, so he is at very high risk of infection. In his chest x-ray, some abnormalities, unclear where this is an acute pneumonia. We will repeat his white blood cell count and get a procalcitonin. Lactate was normal earlier, we will repeat that and place him on Levaquin empirically, monitor him for further signs and symptoms of sepsis carefully. 2. Left total hip replacement. Postoperative management as per Dr. Gonzalez. 3. Anxiety disorder. Continue buspirone and Lexapro. 4. Coronary artery disease with chronic diastolic and systolic congestive heart failure. Continue Coreg. PATIENT'S NAME: DEVON HANDY [facility] AGE: 82 Y [address] ROOM: [place] [address] LOCATION: [facility] ADMIT DATE: 05/29/2017 Consultation DISCHARGE DATE: FAMILY PHYSICIAN: Marcos Dan MD ATTENDING PHYSICIAN: FREDERICK GONZALEZ 5. History of atrial fibrillation, on Xarelto. Consider resuming Xarelto tomorrow, is pending on orthopedic preference for this. 6. Hypertension. He actually has a low blood pressure, and we will have to hold his beta lakisha as long as systolic is less than 100 since his baseline seems to be around 99 currently according to my discussion with Dr. Thrasher earlier. 7. Oxsujf-we-qfdnzkw disease. We will check a CBC in the morning and monitor hemoglobin. 8. Protein calorie malnutrition. Put him on high-calorie diet. 9. Rheumatoid arthritis. Continue his baseline of 5 mg of prednisone daily. 10. Gastroesophageal reflux disease. Continue PPI p.o. DISPOSITION: Hopefully, we would be able to wean him from the Blair-Synephrine in the next several hours postoperatively and be able to transfer out of the ICU and discharge back to rehab in the near future. NANCY SHANE MD LM/olivia /[id number] d: 05/30/17 0232 t: 05/31/17 1721, CONSULTATION REPORT
[2017-05-22] MEDS ORDERED: FEOSOL325 MG PO (11:07)
[2017-05-22] MEDS ORDERED: FLORASTOR250 MG PO (11:08)
[2017-05-22] MEDS ORDERED: BUSPIRONE HCL15 MG PO (11:10)
[2017-05-22] MEDS ORDERED: ALLEGRA180 MG PO (11:11)
[2017-05-22] MEDS ORDERED: IMODIUM2 MG PO (11:12)
[2017-05-22] MEDS ORDERED: DULCOLAX10 MG R (11:15)
[2017-05-22] MEDS ORDERED: ENEMA READY TO133 ML R (11:16)
[2017-05-22] MEDS ORDERED: HYDROCODON-ACE1 EAC4 PO (11:18)
[2017-05-22] MEDS ORDERED: TYLENOL EXTRA500 MG PO (11:19)
[2017-05-29 12:28] LABS: CREATININE 1.1 mg/dL (0.6-1.3); ESTIMATED GFR (MDRD EQUATION) > 60
[2017-05-29 14:36] LABS: BASOPHIL % 0.1 %; EOSINOPHIL % 0.1 %; HEMATOCRIT 33.6 % (33.0-50.0); HEMOGLOBIN 10.3 g/dL (11.0-16.0); IMMATURE GRANULOCYTE # 0.1 K/uL (0.0-0.3); IMMATURE GRANULOCYTE % 0.9 %; LYMPHOCYTE # 1.1 K/uL (0.8-4.0); LYMPHOCYTE % 10.6 %; MCHC 30.7 gm/dL (32.0-36.5); MCV 91.3 fl (83.0-98.0); MONOCYTE # 0.6 K/uL (0.0-1.0); MONOCYTE % 5.7 %; MPV 10.7 fl (9.4-12.4); NEUTROPHIL # (ANC) 8.5 K/uL (1.4-9.0); NEUTROPHIL % 82.6 %; NRBC % 0 /100WBC (0-0.00); PLATELET COUNT 141 K/uL (150-450); RBC 3.68 M/uL (3.50-5.50); RDW-CV 16.2 % (11.9-14.6); WBC 10.2 K/uL (4.0-11.0)
[2017-05-29 14:40] LABS: PCO2 53 mmHg (35-45)
[2017-05-29 14:41] LABS: BICARBONATE 26.1 mmol/L (18.0-23.0); PO2 100 mmHg (80-90)
[2017-05-29 14:54] LABS: ALBUMIN 2.7 gm/dL (3.5-5.0); ANION GAP 11.2 (10.0-19.0); BLOOD UREA NITROGEN 32 mg/dL (6-24); CALCIUM 7.8 mg/dL (8.5-10.5); CHLORIDE 112 mMol/L (96-110); CO2 25 mMol/L (22-32); ESTIMATED GFR (MDRD EQUATION) > 60; PHOSPHORUS 5.3 mg/dL (2.5-4.9); POTASSIUM 4.2 mMol/L (3.7-5.1); SODIUM 144 mMol/L (135-145)
[2017-05-29 20:49] LABS: BASOPHIL % 0.1 %; EOSINOPHIL % 0.2 %; HEMATOCRIT 32.1 % (33.0-50.0); IMMATURE GRANULOCYTE # 0.1 K/uL (0.0-0.3); IMMATURE GRANULOCYTE % 0.5 %; LYMPHOCYTE # 2.3 K/uL (0.8-4.0); LYMPHOCYTE % 17.8 %; MCH 28.3 pg (27.0-34.0); MCHC 31.2 gm/dL (32.0-36.5); MCV 90.9 fl (83.0-98.0); MONOCYTE # 1.1 K/uL (0.0-1.0); MONOCYTE % 8.5 %; MPV 11.5 fl (9.4-12.4); NEUTROPHIL # (ANC) 9.5 K/uL (1.4-9.0); NEUTROPHIL % 72.9 %; NRBC % 0 /100WBC (0-0.00); PLATELET COUNT 163 K/uL (150-450); RBC 3.53 M/uL (3.50-5.50); RDW-CV 16.4 % (11.9-14.6)
[2017-05-30 05:30] LABS: ESTIMATED GFR (MDRD EQUATION) > 60
[2017-05-30 05:36] LABS: BASOPHIL % 0.3 %; EOSINOPHIL # 0.3 K/uL (0.0-0.5); EOSINOPHIL % 2.8 %; HEMATOCRIT 31.2 % (33.0-50.0); HEMOGLOBIN 9.5 g/dL (11.0-16.0); IMMATURE GRANULOCYTE % 0.4 %; LYMPHOCYTE # 1.4 K/uL (0.8-4.0); LYMPHOCYTE % 13.5 %; MCH 27.9 pg (27.0-34.0); MCHC 30.4 gm/dL (32.0-36.5); MCV 91.5 fl (83.0-98.0); MONOCYTE # 0.7 K/uL (0.0-1.0); MONOCYTE % 6.9 %; NEUTROPHIL # (ANC) 7.8 K/uL (1.4-9.0); NEUTROPHIL % 76.1 %; NRBC % 0 /100WBC (0-0.00); PLATELET COUNT 144 K/uL (150-450); RBC 3.41 M/uL (3.50-5.50); RDW-CV 16.4 % (11.9-14.6); WBC 10.3 K/uL (4.0-11.0)
--- NOTE | 2017-05-30 05:36 | NUR ---
Significant Event:PATIENT ADMITED FROM PACU, PAIN MEDS GIVEN X2 NORCO FOR POST OP PAIN IN LEFT HIP, BP BORDERLINE CURRENTLY ON LARON 0.5MG/KG/MIN, WEANED TO 3L/MIN, URINE OUTPUT OK, TOLERATING PO MEDS Follow up:
[2017-05-30 13:28] LABS: HEMATOCRIT 29.7 % (33.0-50.0)
[2017-05-30 13:39] LABS: ANION GAP 9.7 (10.0-19.0); POTASSIUM 3.7 mEq/L (3.7-5.1)
[2017-05-30 13:40] LABS: ALBUMIN 2.8 gm/dL (3.5-5.0); CALCIUM 7.5 mg/dL (8.5-10.5); CREATININE 1.2 mg/dL (0.6-1.3); MAGNESIUM 1.8 mg/dL (1.8-2.6); PHOSPHORUS 2.6 mg/dL (2.5-4.9)
--- NOTE | 2017-05-30 18:29 | NUR ---
Significant Event: Patient alert and oriented x3. Reports chronic numbness/tingling to feet. Pacer/AICD present. Hypotensive, all other VSS on 4L O2. Blair gtt at 0.3. Albumin started today x4 doses. Stevens patent and draining yellow urine, chronic stevens. L) hip drsg intact, no drainage seen. L) art line used for pressures, cuff pressures read a lot lower. IV to L) FA infusing LR at 80 mL/hr and blair gtt. IV to L) AC, saline locked. [place] given for pain with relief noted. Did get up to chair today with therapies. Accucheks q 6 hours. Follow up:
[2017-05-31 04:58] LABS: HEMATOCRIT 26.4 % (33.0-50.0); HEMOGLOBIN 8.1 g/dL (11.0-16.0); MCHC 30.7 gm/dL (32.0-36.5); MCV 91.3 fl (83.0-98.0); MPV 11.1 fl (9.4-12.4); RBC 2.89 M/uL (3.50-5.50); RDW-CV 16.3 % (11.9-14.6); WBC 7.2 K/uL (4.0-11.0)
[2017-05-31 05:01] LABS: PLATELET COUNT 108 K/uL (150-450)
[2017-05-31 05:10] LABS: ALBUMIN 2.8 gm/dL (3.5-5.0); ANION GAP 10.7 (10.0-19.0); BLOOD UREA NITROGEN 22 mg/dL (6-24); CALCIUM 7.7 mg/dL (8.5-10.5); CHLORIDE 112 mMol/L (96-110); CO2 25 mMol/L (22-32); CREATININE 0.8 mg/dL (0.6-1.3); ESTIMATED GFR (MDRD EQUATION) > 60; MAGNESIUM 1.7 mg/dL (1.8-2.6); PHOSPHORUS 2.3 mg/dL (2.5-4.9); POTASSIUM 3.7 mMol/L (3.7-5.1); SODIUM 144 mMol/L (135-145)
--- NOTE | 2017-05-31 05:54 | NUR ---
Significant Event: Follow up:A/OX3, TURNED Q2 HOURS, PACED HR, BORDERLINE BP WITH LARON AT 0.3MCG/KG/MIN, SATS 94-98% ON 4 LITERS NASAL CANNULA, SECOND DAY POST OP FROM LEFT HIP REVISION, DRESSING CLEAN DRY AND INTACT, ABLE TO MOVE TOES BILATERALLY, PAIN MED X3 NORCO, NO INSULIN REQUIRED DURING SHIFT
[2017-05-31 05:55] LABS: ABSOLUTE NEUTROPHIL CT (ANC) 5.2 K/uL (1.4-9.0); BANDED NEUTROPHIL # 0.3 K/uL (0.0-0.1); BANDED NEUTROPHILS % 4 %; LYMPHOCYTE # 1.2 K/uL (0.8-4.0); LYMPHOCYTE % 17 %; MONOCYTE # 0.4 K/uL (0.0-1.0); SEGMENTED NEUTROPHIL # 4.9 K/uL (1.4-9.0); SEGMENTED NEUTROPHIL % 68 %
--- NOTE | 2017-05-31 13:09 | NUR ---
Significant Event: Patient alert and oriented x3. On ladi gtt to keep MAP >65, ladi at 0.2 currently. All other VSS on 4L O2. Pacer/AICD present to L) chest. Colbert patent and draining yellow urine. Dulcolax suppository given this shift. Magnesium sulfate 2 grams given this shift. Bumex given. L) hip mepilex drsg present, dry/intact. Small open areas noted to posterior scrotum and buttock. L) art line in place. Art line being used for pressures to titrate ladi gtt. IV to L) FA infusing LR at 80 mL/hr and ladi gtt. IV to L) AC, saline locked. Accucheks q 6 hours. Follow up:
[2017-05-31 16:41] LABS: HEMATOCRIT 25.5 % (33.0-50.0)
[2017-05-31 16:55] LABS: ANION GAP 9.7 (10.0-19.0); BLOOD UREA NITROGEN 19 mg/dL (6-24); CALCIUM 7.7 mg/dL (8.5-10.5); CHLORIDE 111 mMol/L (96-110); CO2 26 mMol/L (22-32); ESTIMATED GFR (MDRD EQUATION) > 60; MAGNESIUM 2.1 mg/dL (1.8-2.6); POTASSIUM 3.7 mMol/L (3.7-5.1); SODIUM 143 mMol/L (135-145)
--- NOTE | 2017-06-01 04:56 | NUR ---
Significant Event: A/O. PACED RHTYHM, PVC'S. SBP 80-120'S. MAP 60-70'S. LABILE BP. CUFF BP CONTINUES TO READ LOWER THAN ARTLINE. O2 3-4L OVERNIGHT. NO BM OVERNIGHT. ADEQUATE UOP. NORCO 1 TAB GIVEN FOR PAIN X2. SLEPT MOST OF NIGHT. Follow up: CONTINUE TO MONITOR.
[2017-06-01 05:42] LABS: ALBUMIN 3.1 gm/dL (3.5-5.0); ANION GAP 7.8 (10.0-19.0); BLOOD UREA NITROGEN 18 mg/dL (6-24); CHLORIDE 112 mMol/L (96-110); CO2 27 mMol/L (22-32); CREATININE 0.8 mg/dL (0.6-1.3); ESTIMATED GFR (MDRD EQUATION) > 60; MAGNESIUM 2.1 mg/dL (1.8-2.6); POTASSIUM 3.8 mMol/L (3.7-5.1); SODIUM 143 mMol/L (135-145)
[2017-06-01 06:23] LABS: BASOPHIL % 0.2 %; EOSINOPHIL # 0.2 K/uL (0.0-0.5); EOSINOPHIL % 4.2 %; HEMATOCRIT 23.7 % (33.0-50.0); IMMATURE GRANULOCYTE % 0.5 %; LYMPHOCYTE # 1.4 K/uL (0.8-4.0); LYMPHOCYTE % 24.8 %; MCH 28.5 pg (27.0-34.0); MCHC 31.2 gm/dL (32.0-36.5); MCV 91.2 fl (83.0-98.0); MONOCYTE # 0.5 K/uL (0.0-1.0); MONOCYTE % 9.4 %; MPV 11.3 fl (9.4-12.4); NEUTROPHIL # (ANC) 3.4 K/uL (1.4-9.0); NEUTROPHIL % 60.9 %; NRBC % 0 /100WBC (0-0.00); PLATELET COUNT 99 K/uL (150-450); RDW-CV 16.6 % (11.9-14.6); WBC 5.7 K/uL (4.0-11.0)
[2017-06-01 06:28] LABS: HEMOGLOBIN 7.4 g/dL (11.0-16.0)
--- NOTE | 2017-06-01 09:54 | NUR ---
CONSULT RECEIVED D/T PRE-ALB OF 12.0. PT ON REGULAR DIET AND EATING 75-100% CONSISTENTLY. BMI IN OVERWEIGHT RANGE. PT STATES HE IS EATING MEAT AT MEALS. DOES NOT LIKE ENSURE. AGREEABLE TO TRYING CIB. WILL SEND BID W/ BF AND DINNER. WILL CONT TO ASSIST NEEDED.
[2017-06-01 12:18] LABS: HEMATOCRIT 25.6 % (33.0-50.0); HEMOGLOBIN 7.9 g/dL (11.0-16.0)
--- NOTE | 2017-06-01 13:31 | NUR ---
Reviewed chart, pt resides at [facility] in [place]. Carlee with [facility] called for update, they will accept back when ready for dc, not tomorrow but after then.
--- NOTE | 2017-06-01 13:47 | NUR ---
Significant Event: Patient A/O X33. Denies N/T. Follows commands. Moves all extremities spontaneously. Paced with PVCs. HR 80s. 2+ genralized edma. Bumex given this shift IVP. SBP 90.120. MAPs>60 all shift. 4L NC with sats in the mid 90s. LS clear and diminished. Encouraged IS. BS active X4. No BM this shift. Colbert in place. 1350 out for my shift. Regular diet. Pilss whole with water. Mepilex to left hip. C/D/I. Lillian-area excoriated. Small open areas on bottom and scrotum. L) AC and lower forearm PIV. SLL. Flush well with blood return. Full lift for nursing. Stood with therapy. [place] for pain management. Transferred to at 1345 Follow up:
--- NOTE | 2017-06-01 16:50 | NUR ---
patient transferred from icu at 1345. up in relciner. full lift back to bed. mepilex dressing d/i to left hip, old incision to anterior hip, slighlty dry no drainage. stevens patent, will have stevens pulled in am and follow nurse driven protocol. regular diet. csm adequate. stood at bedside with 2 nurses very poorly, unable to get to standing position or bear weight. open area to buttock and scrotum, aloe and nystatin applied. lung sounds clear diminished, using IS when reminded to 500 for 5-6 breaths, encouraged to DBC. sl x 2. 2 + edema to lower legs, removed ameena hose this evening for night.
[2017-06-01 16:58] LABS: CALCIUM 8.3 mg/dL (8.5-10.5); CREATININE 1.2 mg/dL (0.6-1.3)
--- NOTE | 2017-06-02 04:34 | NUR ---
Pt on tele, no calls. Pt turned Q2H. Pt on 2L O2 per NC as of 0111. Last norco at 0320. CSM's intact.
[2017-06-02 05:48] LABS: HEMATOCRIT 26.3 % (33.0-50.0)
[2017-06-02 06:14] LABS: ALBUMIN 3.3 gm/dL (3.5-5.0); ANION GAP 10.7 (10.0-19.0); BLOOD UREA NITROGEN 21 mg/dL (6-24); CALCIUM 8.1 mg/dL (8.5-10.5); CHLORIDE 107 mMol/L (96-110); CO2 29 mMol/L (22-32); CREATININE 0.9 mg/dL (0.6-1.3); ESTIMATED GFR (MDRD EQUATION) > 60; POTASSIUM 3.7 mMol/L (3.7-5.1); SODIUM 143 mMol/L (135-145)
--- NOTE | 2017-06-02 17:10 | NUR ---
Significant Event: Transfers with Full lift and two assist. Dressing C/D/I. Ice at all times. Titrated to room air. Sayra patent. Elza for pain control. CSM WNL. Red areas to coccyx and scrotum, moisture barrier cream applied. Follow up:
--- NOTE | 2017-06-03 04:51 | NUR ---
Shift Summary: Patient is a lift for nursing. Taking scheduled tylenol only for pain. Still has stevens cath. Please follow up as to weither rodney is chronic stevens or not. He is on tele. No calls this shift. Has blisters to left upper thigh from stevens stat lock. Rash to groin. Used prn nystatin powder last night. Plan is for patient to go to [facility] when discharged.
[2017-06-03 05:33] LABS: HEMATOCRIT 27.4 % (33.0-50.0); HEMOGLOBIN 8.6 g/dL (11.0-16.0)
[2017-06-03 05:51] LABS: ESTIMATED GFR (MDRD EQUATION) > 60
--- NOTE | 2017-06-03 09:04 | NUR ---
PT SCREENED D/T LOS. EST NEEDS: [id number] KCALS, 102-132 GM PROTEIN, 1 ML/KCAL FLUIDS. CIB BID D/T CONSULT FOR LOW PRE-ALB. INTAKE 75-100% W/ GOOD MEAL SELECTIONS. INTAKE ADEQUATE. NO NUTRITION-RELATED DIAGNOSIS IDENTIFIED. WILL ASSIST NEEDED.
--- NOTE | 2017-06-03 10:50 | NUR ---
RECEIVED REFERRAL THAT DEVON CAN RETURN TO [facility] TODAY. I NOTIFIED [facility] ND SPOKE TO PIETER SHE REPORTS THAT THEY WILL BE HERE AT 1300 TO GET PATIENT. ROLLY PA WITH DR. GONZALEZ HERE AND SEEN PATIENT AND FEELS DEVON IS READY FOR DISCHARGE BACK TO [facility]. SPOKE TO DEVON AND UPDATED HIM THAT HE WILL BE GOING BACK TO [facility] TODAY AND HE IS IN AGREEMENT TO THIS. I OFFERED TO CONTACT HIS SPOUSE BUT HE TELLS ME THAT HE HAS NOTIFIED HER. DR. LANDA HAS BEEN NOTIFIED AND COMPLETED THE ORDERS. PACKET STARTED.
--- NOTE | 2017-06-03 12:35 | NUR ---
Transfer Note: Repositions in bed with one assist. Dressing to posterior L) hip C/D/I. Xeroform and Telfa to L) anterior thigh blisters. Small open area to upper coccyx and scrotum, aloe vista applied with each repositioning. Colbert patent. Transfers with two assist and full lift for nursing and two assist and [id number] for therapy. Large BM this am. [place] 1 tab last at 1228. Room air while awake, does need O2 at 2L overnight. Pleasant and cooperative.
--- NOTE | 2017-06-03 13:00 | NUR ---
FAXED TRANSFERE ORDERS TO [facility]. PER REQUEST OF [facility].
== END 2017-06-03 13:26 | disposition disaster alternative care site (69) | DRG 466 ==
LOC: G3N 05-29 05:17 → GICU 05-29 19:07 → G3N 06-01 14:05
PROVIDERS: Anesthesiology; Family Medicine; Internal Medicine; ADMIT Orthopaedic Surgery
PROC: 0SPB0JZ Removal of Synthetic Substitute from Left Hip Joint, Open Approach (ICD-10-PCS; principal; 2017-05-29)
PROC: 0SRB02A Replacement of Left Hip Joint with Metal on Polyethylene Synthetic Substitute, Uncemented, Open Approach (ICD-10-PCS; principal; 2017-05-29)
PROC: 05HM33Z Insertion of Infusion Device into Right Internal Jugular Vein, Percutaneous Approach (ICD-10-PCS; principal; 2017-05-29)
DX: M00.852 Arthritis due to other bacteria, left hip (principal); I50.43 Acute on chronic combined systolic (congestive) and diastolic (congestive) heart failure; R57.9 Shock, unspecified; E46 Unspecified protein-calorie malnutrition; B96.5 Pseudomonas (aeruginosa) (mallei) (pseudomallei) as the cause of diseases classified elsewhere; I48.0 Paroxysmal atrial fibrillation; J44.9 Chronic obstructive pulmonary disease, unspecified; N18.3 Chronic kidney disease, stage 3 (moderate); D62 Acute posthemorrhagic anemia; I13.0 Hypertensive heart and chronic kidney disease with heart failure and stage 1 through stage 4 chronic kidney disease, or unspecified chronic kidney disease; M89.8X9 Other specified disorders of bone, unspecified site; D63.8 Anemia in other chronic diseases classified elsewhere; I25.10 Atherosclerotic heart disease of native coronary artery without angina pectoris; K21.9 Gastro-esophageal reflux disease without esophagitis; M06.9 Rheumatoid arthritis, unspecified; Z86.19 Personal history of other infectious and parasitic diseases; Z79.01 Long term (current) use of anticoagulants; D63.1 Anemia in chronic kidney disease
CPT/HCPCS: C1776; C9399; J0131; J1170; J1720; J1885; J1940; J1956; J2001; J2250; J2270; J2370; J2405; J2795; J3370; J3475; J7030; J7040; J7050; J7120; J7512; P9045; P9047

== ENCOUNTER → 2017-05-22 | Outpatient (CLI) | payer MEDICARE, BC ==
[~2017-05-22] MED LIST changes: +ALLEGRA180 MG PO; +BUSPIRONE HCL15 MG PO; +ENEMA READY TO133 ML R; +HYDROCODON-ACE1 EAC4 PO; +IMODIUM2 MG PO; +TYLENOL EXTRA500 MG PO
--- NOTE | ~2017-05-22 | ENPV ---
Vascular Upper Extremities Veins Procedure Demographics Patient Name DEVON HANDY Date of Study 05/22/2017 N Patient Number [id number] Gender Male Date of 1935 Age 82 Visit Number [id number] Height Accession Number [id number] Weight Room Number BSA BMI Referring Marlon Siegel MD Interpreting Salvador Mcelroy MD Physician Physician Physician Ordering Anna Marie Buchanan Canvas Repairer Physician Senior Principal Architect Reed Flores BS, RT Conclusions Summary The internal jugular, subclavian and axillary veins have been examined bilaterally. No Thrombosis seen. Procedure Type of Study: Veins:Upper Extremities Veins, Venous Duplex Upper Extremity Bilateral. Indications for Study:Pre-Op clearance and DVT, History of. Additional Indications:Assess bilateral IJ, Subclavian, and axillary veins. Patient Status:Routine. Study Location:Vascular Lab. Technical Quality:Adequate visualization. Velocities are measured in cm/s ; Diameters are measured in cm Right UE Vein Measurements 2D and Doppler Measurements + + + + +--------+ + !Location !Visualized !Compressibility !Thrombosis !Signal !Reflux ! + + + + +--------+ + !IJV !Yes !Yes !None !Phasic ! ! + + + + +--------+ + !SCV !Yes !Yes !None !Phasic ! ! + + + + +--------+ + !Axillary !Yes !Yes !None !Phasic ! ! + + + + +--------+ + Left UE Vein Measurements 2D and Doppler Measurements + + + + +--------+--------+ !Location !Visualized !Compressibility !Thrombosis !Signal !Reflux ! + + + + +--------+--------+ !IJV !Yes !Yes !None !Phasic ! ! + + + + +--------+--------+ !Innominate !Yes !Yes !None !Phasic ! ! + + + + +--------+--------+ !Axillary !Yes !Yes !None !Phasic ! ! + + + + +--------+--------+ Signature dtt: EVE VALENTE dtjarad: 05/22/17 1237 Physician Self Edit
== END | disposition disaster alternative care site (69) ==
LOC: GOPD
DX: I42.9 Cardiomyopathy, unspecified (principal); Z86.718 Personal history of other venous thrombosis and embolism

== ENCOUNTER → 2017-05-25 | Outpatient (CLI) | payer MEDICARE, BC ==
--- NOTE | ~2017-05-25 | ECHO ---
Transthoracic Echocardiography Report (TTE) Demographics Patient Name DEVON HANDY Date of Study 05/25/2017 N Patient Number [id number] Visit Number [id number] Date of 1935 Room Number Gender Male Number Age 82 year(s) Referring Sy Flores MD Bag Sewer Marcellus Suero RVT, Physician RDCS Physician Interpreting Spencer Staples MD Peanut Sheller Physician Supervising Ordering Anna Marie Buchanan MD/MAUP Physician Nurse Stress Singing Teacher Conclusions Contractility Score Summary At rest the following contractility abnormalities were noted: Hypokinesis of the Mid ho-septal, the Mid infero-septal and the Basal infero-septal segments. Contractility of all other segments appeared normal. Summary Very technically difficult exam. Exam done with patient supine. The estimated left ventricular ejection fraction is 45%. Mild concentric left ventricular hypertrophy. Diastolic function indeterminate due to patient's arrhythmia. The left atrium is moderately dilated. Mild tricuspid regurgitation by color Doppler. There is mild pulmonary hypertension. The pulmonary pressure (RVSP) is 37 mmHg. Mild pulmonic valve regurgitation by color Doppler. Procedure Type of Study TTE procedure:2D Echocardiogram. Procedure Date Date: 05/25/2017 Start: 08:36 AM Study Location: Echo Lab Technical Quality: Fair due to patient immobility. Indications:Pre surgical clearance. Appropriate Use Criteria: 8 Patient Status: Routine Rhythm: Paced HR: 93 bpm BP: 121/61 mmHg M-Mode/2D Measurements LV Diastolic Dimension: 5.8 cm LV Systolic Dimension: 4.36 cm LV Septum Diastolic: 1.3 cm LV PW Diastolic: 1.33 cm AO Root Dimension: 3.5 cm Cardiac Output: 7.5 l/min LA Dimension: 4.1 cm LVOT: 3.3 cm LVOT VTI: 9.43 cm RV Base: 3.63 cm LV Stroke volume: 80.61 ml RV Length: 7.03 cm TAPSE: 2.25 cm TDI-S': 12.4 cm/s Doppler Measurements AV Peak Velocity: 1.24 m/s MV Peak A-Wave: 0.67 m/s AV Peak Gradient: 6.15 mmHg AV Mean Gradient: 5 mmHg LVOT Peak Velocity: 0.63 m/s PV Peak Gradient: 2.06 mmHg TR Velocity:2.81 m/s Estimated PASP: 36.58 mmHg TR Gradient:31.58 mmHg A' Septal Velocity: 0.07 m/s Estimated RAP:5 mmHg A' Lateral Velocity: 0.07 m/s Estimated RVSP: 37 mmHg E' Septal Velocity: 0.07 m/s E' Lateral Velocity: 0.07 m/s Findings Left Ventricle Mild concentric left ventricular hypertrophy. Diastolic function indeterminate due to patient's arrhythmia. Paradoxical septal motion abnormality Right Ventricle Normal right ventricle structure and function. Device lead noted in the right ventricle. Left Atrium The left atrium is moderately dilated. There is no evidence of patent foramen ovale or atrial septal defect by color Doppler. Right Atrium Normal right atrial size. IVC measures 2.32 cm with inspiratory collapse. Mitral Valve Normal mitral valve structure and function. Trivial mitral regurgitation by color Doppler. Aortic Valve Normal aortic valve structure and function. Tricuspid Valve Mild tricuspid regurgitation by color Doppler. There is mild pulmonary hypertension. The pulmonary pressure (RVSP) is 37 mmHg. Pulmonic Valve Mild pulmonic valve regurgitation by color Doppler. Pericardial Effusion No evidence of pericardial effusion. Miscellaneous Visualized portions of the aortic root and ascending aorta appear normal in size. Pleural Effusion No evidence of pleural effusion. Contractility Score LV regional wall motion:(0-Non visualized 1-Normal 2-Hypokinesis 3-Akinesis 4-Dyskinesis 5-Aneurysm) Signature dtt: Jhoan Palmer (cardio) dtd: 05/25/17 0836 Physician Self Edit
== END | disposition disaster alternative care site (69) ==
LOC: GCAR 08:32
DX: I42.9 Cardiomyopathy, unspecified (principal); I51.7 Cardiomegaly; I49.9 Cardiac arrhythmia, unspecified; I72.9 Aneurysm of unspecified site; I07.1 Rheumatic tricuspid insufficiency; I27.2 Other secondary pulmonary hypertension; I37.1 Nonrheumatic pulmonary valve insufficiency; Z86.718 Personal history of other venous thrombosis and embolism